=== PATIENT | male | born 1960 | race Caucasian/White ===

== ENCOUNTER → 2017-07-24 | Outpatient (CLI) | payer OTHER ==
[2017-07-24 17:42] LABS: BLOOD UREA NITROGEN 20 mg/dl (7-18); CALCIUM 9.3 mg/dl (8.5-10.1); CARBON DIOXIDE 27 mmol/L (21-32); CREATININE 1.08 mg/dl (0.60-1.40); GLUCOSE 102 mg/dl (70-99); POTASSIUM 3.7 mmol/L (3.5-5.1); SODIUM 134 mmol/L (136-145)
[2017-07-24 17:46] LABS: CHOLESTEROL 223 mg/dl (0-200); LDL CHOLESTEROL CALCULATED 130 mg/dl
== END | disposition home or self-care (01) ==
LOC: C.LABPVFM 16:16
PROVIDERS: ATTEND Family Medicine
DX: I10 Essential (primary) hypertension (principal); E78.2 Mixed hyperlipidemia

== ENCOUNTER 2019-08-19 16:42 | Inpatient (IN) ==
[2019-08-19] MEDS ORDERED: SODIUM CHLORIDE 0.9% 1000ML 1,000 ML IV ONE (16:55)
[2019-08-19] MEDS ORDERED: ONDANSETRON INJ 2 MG/ML 2 ML VIAL IV STA (16:56)
[2019-08-19] MEDS ORDERED: MoRPHine SULFATE 4 MG/ML 1 ML CARP\\VIAL IV STA ×2 (16:56→17:31)
[2019-08-19] MEDS ORDERED: ACETAMINOPHEN 500 MG TAB PO STA (16:59)
--- NOTE | 2019-08-19 16:59 | Emergency Department Note ---
History of Present Illness General Chief complaint: Abdominal Pain Stated complaint: ABDOMINAL PAIN Time Seen by Provider: 08/19/19 16:49 Source: patient Mode of arrival: ambulatory Limitations: no limitations History of Present Illness Maximum Pain Intensity: 10 This Patient comes in with severe lower abdominal pain which started yesterday is got progressively worse. He has had associated nausea vomiting and diarrhea. He also says that he has not urinated for about 4 hours. He appears very uncomfortable. He also has a fever. No fall or trauma. No numbness or weakness of his legs. He has had some back issues but these are not currently giving him any problems. He has had no chest pain shortness of breath or recent travel. No history of abdominal surgery. Home Medications Home Medications Medication Instructions Recorded Confirmed Type tadalafil 10 mg tablet 10 mg PO UD PRN #6 tab 02/01/19 08/19/19 Rx gabapentin 100 mg capsule 100 mg PO .COMPLEX #90 cap 08/05/19 08/19/19 Rx lisinopril 20 1 tab PO DAILY #30 tab 08/09/19 08/19/19 Rx mg-hydrochlorothiazide 12.5 mg tablet metoprolol succinate 12.5 mg PO HS 08/19/19 08/19/19 History Allergies Allergy/AdvReac Type Severity Reaction Status Date / Time No Known Allergies Allergy Verified 08/19/19 17:11 Past Med/Surg History Medical History Anxiety (Chronic) Benign essential hypertension (Chronic) Erectile dysfunction (Chronic) Mixed hyperlipidemia (Chronic) Radicular low back pain Sciatic leg pain (Acute) Tubular adenoma of colon Tubulovillous adenoma of colon (Inactive) Surgical History No history of previous surgery Family History Denies family history of Ovarian cancer Prostate cancer Myocardial infarction Breast cancer Colorectal cancer Social History Preferred Language: Frisian marital status: Current Living Situation: Spouse current occupational status: employed Feels Safe at Home: Yes Smoking Status: Never smoker Do You Dip or Chew Tobacco: No ; Hx Alcohol Use: No Hx Substance Use: No during the past year weight has: remained stable Seatbelt Use: always Review of Systems A total of 10 systems reviewed and were otherwise negative Physical Exam Vital Signs Vital Signs - 24 hr 08/19/19 16:44 08/19/19 17:00 08/19/19 17:30 Temperature 39.1 C H Temperature Source Oral Pulse Rate 120 H 102 H Pulse Rate from SpO2 Sensor 103 H Respiratory Rate 28 H 23 Blood Pressure 158/87 H 152/93 H Blood Pressure Mean 110 110 Pulse Oximetry 100 98 95 Oxygen Delivery Method Room Air Room Air Sepsis Recent Fever Within 48 Hours Yes Sepsis New/Unexplained Change in Mental Status No Sepsis Action Taken by Nursing No Action Required 08/19/19 17:40 08/19/19 18:00 08/19/19 18:01 Temperature Temperature Source Pulse Rate 104 H 110 H 107 H Pulse Rate from SpO2 Sensor 104 H 109 H 107 H Respiratory Rate 23 24 22 Blood Pressure 151/89 H Blood Pressure Mean 127 Pulse Oximetry 96 93 95 Oxygen Delivery Method Sepsis Recent Fever Within 48 Hours Sepsis New/Unexplained Change in Mental Status Sepsis Action Taken by Nursing 08/19/19 18:30 08/19/19 18:50 Temperature 37.4 C Temperature Source Oral Pulse Rate 105 H Pulse Rate from SpO2 Sensor 105 H Respiratory Rate 24 Blood Pressure 146/82 H Blood Pressure Mean 97 Pulse Oximetry 95 Oxygen Delivery Method Sepsis Recent Fever Within 48 Hours Sepsis New/Unexplained Change in Mental Status Sepsis Action Taken by Nursing General: Well developed well nourished middle-age male who appears uncomfortable secondary to pain but in no acute respiratory distress, breathing comfortably on room air. Normal speech HEENT: Normal cephalic atraumatic. Pupils are equal round and reactive to light. Sclera anicteric. extraocular movements are intact. Oropharynx is pink with moist mucous membranes. No swelling of the mouth lips or tongue. Neck: Supple with a midline trachea. No meningeal signs or stiffness, no JVD or bruits. No Stridor. Chest: Normal respiratory effort, speaking full sentences. No retractions. No audible wheezes or rhonchi. No increased work of breathing. Heart: Tachycardic Abdomen: Moderately tender to palpation in the lower abdomen. Nondistended without rebound guarding or rigidity. Extremities: No cyanosis clubbing or edema. No calf tenderness or assymetry Spine/Back. Non tender to palpation. No CVA tenderness Skin: Good turgor without rashes. Neurologic exam: Cranial nerves two through 12 are intact. Motor and sensation are intact and symmetrical throughout. Course Administered Medications Magnesium Sulfate/Dextrose (Magnesium Sulfate / D5w) 1 gm in 100 mls @ 100 mls/hr IV Q1H GISSEL Stop: 08/19/19 20:44 Last Admin: 08/19/19 18:59 Dose: 100 mls/hr Documented by: [id number] Discontinued Medications Hydromorphone HCl (Dilaudid) 1 mg IV NOW STA Stop: 08/19/19 18:00 Last Admin: 08/19/19 18:03 Dose: 1 mg Documented by: [id number] Hydromorphone HCl (Dilaudid) 1 mg IV NOW STA Stop: 08/19/19 18:23 Last Admin: 08/19/19 18:30 Dose: 1 mg Documented by: [id number] Sodium Chloride (Nss 1000ml) 1,000 mls @ 999 mls/hr IV .Q1H1M ONE Stop: 08/19/19 17:55 Last Infusion: 08/19/19 18:06 Dose: 0 mls/hr Documented by: [id number] Admin: 08/19/19 17:04 Dose: 999 mls/hr Documented by: [id number] Acetaminophen (Ofirmev) 1,000 mg in 100 mls @ 400 mls/hr IV NOW STA; Protocol Stop: 08/19/19 18:00 Last Infusion: 08/19/19 18:12 Dose: 0 mls/hr Documented by: [id number] Admin: 08/19/19 17:57 Dose: 400 mls/hr Documented by: [id number] Piperacillin Sod/Tazobactam Sod (Zosyn) 4.5 gm in 120 mls @ 240 mls/hr IV NOW ONE Stop: 08/19/19 18:38 Last Infusion: 08/19/19 18:51 Dose: 0 mls/hr Documented by: [id number] Admin: 08/19/19 18:21 Dose: 240 mls/hr Documented by: [id number] Morphine Sulfate (Morphine Sulfate) 4 mg IV NOW STA Stop: 08/19/19 16:57 Last Admin: 08/19/19 17:03 Dose: 4 mg Documented by: [id number] Morphine Sulfate (Morphine Sulfate) 4 mg IV NOW STA Stop: 08/19/19 17:32 Last Admin: 03/27/20 17:34 Dose: 4 mg Documented by: [id number] Ondansetron HCl (Zofran) 4 mg IV NOW STA Stop: 08/19/19 16:57 Last Admin: 08/19/19 17:03 Dose: 4 mg Documented by: [id number] Impression & Plan Acute appendicitis, Sepsis, Right sided abdominal pain, Hypomagnesemia Critical Care Time Critical Care Time: Yes Total Critical Care Time: 35 Due to the patient's concern for appendicitis/sepsis and need for frequent evaluation and multiple IV medications and reassessment, I have personally spent greater than 35 minutes of critical care time in the direct management of this patient. This includes bedside care, interpretation of diagnostic studies, and testing, discussion with consultants, patient, and family members, and other required patient management activities. This 35 minutes is in excess of all separately billable procedures. Discharge Plan Visit Data *Final* Discharge Date/Time: 08/19/19 18:42 Chief Complaint: Abdominal Pain Stated Complaint: ABDOMINAL PAIN ED Provider: Jarrett Moon Discharge Problem: Acute appendicitis, Sepsis, Right sided abdominal pain, Hypomagnesemia Patient Disposition: Admitted As Inpatient Discharge Instructions Interventions: ED Discharge Assessment Last Done: 08/19/19 18:42 Medical Decision Making Differential Diagnosis Differential diagnosis includes but is not limited to: Appendicitis, UTI/pyelonephritis, sepsis, colitis, abscess, diverticulitis, prostatitis, bladder outlet obstruction, bowel obstruction Medical Records Attestation: I reviewed the patient's medical records. Home Medications Current Medication List: was personally reviewed by me Laboratory Data Attestation: I reviewed the patient's lab results. Result diagrams: 08/19/19 17:00 08/19/19 17:00 Lab Results 08/19/19 08/19/19 08/19/19 Range/Units 17:00 17:00 17:00 WBC 14.80 H (4.8-10.8) K/uL RBC 5.07 (4.7-6.1) M/uL Hgb 15.6 (14.0-18.0) g/dL Hct 43.4 (42-52) % MCV 85.6 (80-100) fL MCH 30.8 (25-34) pg MCHC 35.9 (32-36) g/dL RDW Std Deviation 40.0 (36.4-46.3) fL RDW Coeff of Jordi 12.9 (11.5-14.5) % Plt Count 168 (130-400) K/uL MPV 11.6 H (7.4-10.4) fL Immature Gran % (Auto) 0.5 % Neut % (Auto) 90.2 % Lymph % (Auto) 3.9 % [place] % (Auto) 5.2 % Eos % (Auto) 0.1 % Baso % (Auto) 0.1 % Immature Gran # (Auto) 0.08 H (0.00-0.02) K/uL Neut # (Auto) 13.36 H (1.4-6.5) K/uL Lymph # (Auto) 0.57 L (1.2-3.4) K/uL [place] # (Auto) 0.77 H (0.11-0.59) K/uL Eos # (Auto) 0.01 (0-0.5) K/uL Baso # (Auto) 0.01 (0-0.2) K/uL PT 12.3 H (9.0-12.0) Seconds INR 1.2 H (0.9-1.1) APTT 36.5 H (21.0-31.0) Seconds PTT Ratio 1.3 Sodium 130 L (136-145) mmol/L Potassium 3.6 (3.5-5.1) mmol/L Chloride 99 (98-107) mmol/L Carbon Dioxide 22 (21-32) mmol/L Anion Gap 10.0 (3-11) BUN 14 (7-18) mg/dl Creatinine 1.06 (0.6-1.4) mg/dl Est Cr Clr Drug Dosing 80.6 ml/min Est GFR ( Amer) 89.2 Est GFR (Non-Af Amer) 77.0 BUN/Creatinine Ratio 12.7 (10-20) Glucose 140 H (70-99) mg/dl Lactate (0.4-2.0) mmol/L Calcium 9.6 (8.5-10.1) mg/dl Magnesium 1.7 L (1.8-2.4) mg/dl Total Bilirubin 1.3 H (0.2-1) mg/dl AST 16 (15-37) U/L ALT 64 (12-78) U/L Alkaline Phosphatase 60 (45-117) U/L Total Protein 7.9 (6.4-8.2) gm/dl Albumin 3.7 (3.4-5.0) gm/dl Globulin 4.2 H (2.5-4.0) gm/dl Albumin/Globulin Ratio 0.9 (0.9-2) // Range/Units 18:05 WBC (4.8-10.8) K/uL RBC (4.7-6.1) M/uL Hgb (14.0-18.0) g/dL Hct (42-52) % MCV (80-100) fL MCH (25-34) pg MCHC (32-36) g/dL RDW Std Deviation (36.4-46.3) fL RDW Coeff of Jordi (11.5-14.5) % Plt Count (130-400) K/uL MPV (7.4-10.4) fL Immature Gran % (Auto) % Neut % (Auto) % Lymph % (Auto) % [place] % (Auto) % Eos % (Auto) % Baso % (Auto) % Immature Gran # (Auto) (0.00-0.02) K/uL Neut # (Auto) (1.4-6.5) K/uL Lymph # (Auto) (1.2-3.4) K/uL [place] # (Auto) (0.11-0.59) K/uL Eos # (Auto) (0-0.5) K/uL Baso # (Auto) (0-0.2) K/uL PT (9.0-12.0) Seconds INR (0.9-1.1) APTT (21.0-31.0) Seconds PTT Ratio Sodium (136-145) mmol/L Potassium (3.5-5.1) mmol/L Chloride (98-107) mmol/L Carbon Dioxide (21-32) mmol/L Anion Gap (3-11) BUN (7-18) mg/dl Creatinine (0.6-1.4) mg/dl Est Cr Clr Drug Dosing ml/min Est GFR ( Amer) Est GFR (Non-Af Amer) BUN/Creatinine Ratio (10-20) Glucose (70-99) mg/dl Lactate 1.7 (0.4-2.0) mmol/L Calcium (8.5-10.1) mg/dl Magnesium (1.8-2.4) mg/dl Total Bilirubin (0.2-1) mg/dl AST (15-37) U/L ALT (12-78) U/L Alkaline Phosphatase (45-117) U/L Total Protein (6.4-8.2) gm/dl Albumin (3.4-5.0) gm/dl Globulin (2.5-4.0) gm/dl Albumin/Globulin Ratio (0.9-2) Imaging Data Radiologist's Impression: CT of the abdomen: Findings consistent with acute appendicitis likely. Please refer to radiology report. Chest x-ray: No acute findings. Please refer to report ECG Data Attestation: I personally reviewed and interpreted this ECG as follows: Indication: + abdominal pain Rate (beats per minute): 110 Rhythm: + sinus tachycardia and + other (Poor baseline) ECG Intervals/blocks: + Prolonged QT ECG [place]: + Normal ECG ST segments: + Normal ST segments Comparison ECG Date: no prior available Blood Pressure Blood Pressure Findings: Elevated blood pressure Blood Pressure Disposition: elevated BP felt to be situational MDM Narrative This patient comes in as described above. The nurse asked that I come see him as he appeared very uncomfortable. On my exam, he does have a fever and significant lower abdominal pain. Concern is for a surgical process such as possible appendicitis. We did a quick bladder scan and there is only 100 cc in the bladder therefore he does not have bladder outlet obstruction. Given his fever, we did order a full sepsis work-up. He was kept n.p.o. was hydrated with 1 L normal IV saline bolus. He was given Tylenol 1 g IV as he was kept n.p.o. He has not had Tylenol for at least 4 hours. For pain, he was given morphine 4 mg IV and Zofran 4 mg IV for nausea management. Multiple blood testing was obtained including blood cultures. Urinalysis and culture was ordered as well. I did order a noncontrast CAT scan. He was reassessed frequently. CAT scan shows findings consistent with appendicitis with a lot of inflammatory changes but no definite abscess seen. The patient did have a significant amount of pain. He did receive additional IV morphine as well as 2 doses of Dilaudid 1 mg IV. It was also noted that his potassium is low at 1.7 and he does have a pr olonged QT interval on EKG. In light of this he was ordered for 2 g of magnesium IV. He had no arrhythmias in the ED. His white count was elevated. His temperature did come down to 37 4 he remained normotensive. His pulse rate also improved with fluids and pain management. I did consult Dr. Hassan and she is going to take him to the operating room for an appendectomy. The patient was given Zosyn 4.5 g IV as well. Discharge Problem: Acute appendicitis Qualifiers: Acute appendicitis type: with localized peritonitis Appendicitis gangrene presence: unspecified whether gangrene present Appendicitis perforation presence: unspecified whether perforation present Appendicitis abscess presence: unspecified whether abscess present Qualified Code(s): K35.30 - Acute appendicitis with localized peritonitis, without perforation or gangrene Sepsis Qualifiers: Sepsis type: sepsis due to unspecified organism Sepsis acute organ dysfunction status: unspecified Qualified Code(s): A41.9 - Sepsis, unspecified organism
--- NOTE | 2019-08-19 17:38 | CT Scan Report ---
CT abd pelvis wo con CT DOSE: 654.63 mGy.cm HISTORY: Pain fever, lower abd pain- eval for appy, diver, abces TECHNIQUE: Multiaxial CT images of the abdomen and pelvis were performed without contrast. A dose lo wering technique was utilized adhering to the principles of ALARA. COMPARISON STUDY: None. FINDINGS: Lung bases are clear. Liver spleen and pancreas appear unremarkable. The kidneys are negative for nephrocalcinosis or hydronephrosis. There is a nonspecific inflammatory process involving the right lower quadrant with several nonspecif ic calcifications possibly within the appendix. There is moderate wall thickening of the distal aspec t of the terminal ileum with secondary reactive inflammatory change of the superior sigmoid colon. No evidence for drainable abscess or collection. Bladder is midline. No free fluid within the pelvic cul-de-sac. IMPRESSION: 1. Findings highly suspect for acute appendicitis with considerable inflammatory change throughout th e low abdominal and pelvic regions. 2. Well-defined drainable abscess or collection is not appreciated. 3. Moderate reactive wall edema of components of the terminal ileum as well as superior sigmoid colon ACT 112: Negative or not required by law. The above report was generated using voice recognition software. It may contain grammatical, syntax or spelling errors. Electronically signed by: Melecio Brewer M.D. 08/19/2019 5:37 PM
[2019-08-19 17:46] LABS: Basophils # (auto) 0.01 K/uL (0-0.2); Basophils % (auto) 0.1 %; Eosinophils # (auto) 0.01 K/uL (0-0.5); Eosinophils % (auto) 0.1 %; Hematocrit (blood only) 43.4 % (42-52); Hemoglobin 15.6 g/dL (14.0-18.0); Immature Granulocytes # (auto) 0.08 K/uL (0.00-0.02); Immature Granulocytes % (auto) 0.5 %; Lymphocytes # (auto) 0.57 K/uL (1.2-3.4); Lymphocytes % (auto) 3.9 %; Mean Corpuscular Hemoglobin 30.8 pg (25-34); Mean Corpuscular Hgb Conc 35.9 g/dL (32-36); Mean Corpuscular Volume 85.6 fL (80-100); Mean Platelet Volume 11.6 fL (7.4-10.4); Monocytes # (auto) 0.77 K/uL (0.11-0.59); Monocytes % (auto) 5.2 %; Neutrophils # (auto) 13.36 K/uL (1.4-6.5); Neutrophils % (auto) 90.2 %; Platelet Count 168 K/uL (130-400); RDW Coefficient of Variation 12.9 % (11.5-14.5); Red Blood Count 5.07 M/uL (4.7-6.1)
[2019-08-19] MEDS ORDERED: ACETAMINOPHEN 1,000 MG/100 ML VIAL IV STA (17:46)
[2019-08-19] MEDS ORDERED: HYDROmorphone INJ 1 MG/ML SYRINGE IV STA ×2 (17:59→18:22)
[2019-08-19 18:00] LABS: INR 1.2 (0.9-1.1); Partial Thromboplastin Ratio 1.3; Partial Thromboplastin Time 36.5 Seconds (21.0-31.0); Prothrombin Time 12.3 Seconds (9.0-12.0)
[2019-08-19 18:03] LABS: Albumin Level 3.7 gm/dl (3.4-5.0); BUN Creatinine Ratio 12.7 (10-20); Calcium 9.6 mg/dl (8.5-10.1); Creatinine Clr Calc Pharmacy 80.6 ml/min; Est GFR (African American) 89.2; Magnesium 1.7 mg/dl (1.8-2.4); Potassium 3.6 mmol/L (3.5-5.1)
[2019-08-19 18:06] LABS: Albumin Globulin Ratio 0.9 (0.9-2); Bilirubin,Total 1.3 mg/dl (0.2-1); Globulin 4.2 gm/dl (2.5-4.0); Total Protein 7.9 gm/dl (6.4-8.2)
[2019-08-19] MEDS ORDERED: PIPERACILL/TAZOBAC CONSULT ACTIVE PRN (18:09)
[2019-08-19] MEDS ORDERED: PIPERACILLIN/TAZOBACTAM 4.5 GM/120 ML BAG IV ONE (18:09)
--- NOTE | 2019-08-19 18:10 | XRay Report ---
XR chest 1V portable CLINICAL HISTORY: SEPSIS dyspnea COMPARISON STUDY: No previous studies for comparison. FINDINGS: The bones soft tissues and hemidiaphragms are normal. The cardiomediastinal silhouette is n ormal. The lungs are clear. The pulmonary vasculature is normal. IMPRESSION: Negative chest. ACT 112: Negative or not required by law. The above report was generated using voice recognition software. It may contain grammatical, syntax or spelling errors. Electronically signed by: Melecio Brewer M.D. 08/19/2019 6:08 PM
--- NOTE | 2019-08-19 18:36 | History & Physical Report ---
Date of Service August 19, 2019 Assessment & Plan (1) Acute appendicitis: 59 yr old man with acute appendicitis. CT scan shows inflammation/ edema also involving terminal ileum and superior sigmoid colon. Inflammatory bowel disease remains a differential also. Discussed laparoscopic appendectomy, possible open, possible risk of needing larger procedure with bowel resection and more prolonged hospital stay. Risks of bleeding, infection, conversion to open, postop ileus, abscess all reviewed. Consent signed. For OR tonight History of Present Illness Chief Complaint: abdominal pain Primary Care Provider: WAYLON Peters 59 yr old man who presented to ER with complaints of severe abdominal pain that started one day ago. Was able to sleep last night but this morning, the abdomen was worse and more localized in lower quadrants. No radiation. 10/10 in intensity, not relieved by pain medications. Associated with fever. No nausea or vomiting. No prior similar symptoms. No recent travel history. Last month, was being treated for left hip/ leg pain by pcp. Allergies Allergy/AdvReac Type Severity Reaction Status Date / Time No Known Allergies Allergy Verified 08/19/19 17:11 Home Medications Home Medications Medication Instructions Recorded Confirmed Type tadalafil 10 mg tablet 10 mg PO UD PRN #6 tab 02/01/19 08/19/19 Rx gabapentin 100 mg capsule 100 mg PO .COMPLEX #90 cap 08/05/19 08/19/19 Rx lisinopril 20 1 tab PO DAILY #30 tab 08/09/19 08/19/19 Rx mg-hydrochlorothiazide 12.5 mg tablet metoprolol succinate 12.5 mg PO HS 08/19/19 08/19/19 History Past Med/Surg History Medical History Anxiety (Chronic) Benign essential hypertension (Chronic) Erectile dysfunction (Chronic) Mixed hyperlipidemia (Chronic) Radicular low back pain Sciatic leg pain (Acute) Tubular adenoma of colon Tubulovillous adenoma of colon (Inactive) Surgical History No history of previous surgery Family History Denies family history of Ovarian cancer Prostate cancer Myocardial infarction Breast cancer Colorectal cancer Social History Preferred Language: Tamaz[place] marital status: Current Living Situation: Spouse current occupational status: employed Feels Safe at Home: Yes Smoking Status: Never smoker Do You Dip or Chew Tobacco: No ; Hx Alcohol Use: No Hx Substance Use: No during the past year weight has: remained stable Seatbelt Use: always Physical Exam Constitutional: WD/WN, vitals as above Eyes: PERRL, conjunctivae normal, anicteric sclerae Neck: trachea midline, no thyromegaly Respiratory: normal respiratory effort, lungs clear to auscultation Cardiovascular: RRR, no murmur, no edema Gastrointestinal (Abdomen): Inspection/Auscultation: + abdomen distended; + abnormal bowel sounds Percussion/Palpation: + abdomen tender (diffusely) and + guarding (lower abdomen); no hepatomegaly small reducible umbilical hernia Musculoskeletal: no cyanosis or clubbing, extremities motor strength 5/5 Neurologic: moves all extremities; no focal motor deficits Psychiatric: Orientation: alert and oriented x 3 Results & Data Results & Data ([facility]) Vital Signs (Past 12 Hours) Vital Signs Temp Pulse Resp BP Pulse Ox 08/19/19 18:01 107 H 22 95 08/19/19 18:00 110 H 24 151/89 H 93 08/19/19 17:40 104 H 23 96 08/19/19 17:30 102 H 23 152/93 H 95 08/19/19 17:00 98 08/19/19 16:44 39.1 C H 120 H 28 H 158/87 H 100 Laboratory Results 08/19/19 08/19/19 08/19/19 Range/Units 18:05 17:00 17:00 WBC (4.8-10.8) K/uL RBC (4.7-6.1) M/uL Hgb (14.0-18.0) g/dL Hct (42-52) % MCV (80-100) fL MCH (25-34) pg MCHC (32-36) g/dL RDW Std Deviation (36.4-46.3) fL RDW Coeff of Jordi (11.5-14.5) % Plt Count (130-400) K/uL MPV (7.4-10.4) fL Immature Gran % (Auto) % Neut % (Auto) % Lymph % (Auto) % [place] % (Auto) % Eos % (Auto) % Baso % (Auto) % Immature Gran # (Auto) (0.00-0.02) K/uL Neut # (Auto) (1.4-6.5) K/uL Lymph # (Auto) (1.2-3.4) K/uL [place] # (Auto) (0.11-0.59) K/uL Eos # (Auto) (0-0.5) K/uL Baso # (Auto) (0-0.2) K/uL PT 12.3 H (9.0-12.0) Seconds INR 1.2 H (0.9-1.1) APTT 36.5 H (21.0-31.0) Seconds PTT Ratio 1.3 Sodium 130 L (136-145) mmol/L Potassium 3.6 (3.5-5.1) mmol/L Chloride 99 (98-107) mmol/L Carbon Dioxide 22 (21-32) mmol/L Anion Gap 10.0 (3-11) BUN 14 (7-18) mg/dl Creatinine 1.06 (0.6-1.4) mg/dl Est Cr Clr Drug Dosing 80.6 ml/min Est GFR ( Amer) 89.2 Est GFR (Non-Af Amer) 77.0 BUN/Creatinine Ratio 12.7 (10-20) Glucose 140 H (70-99) mg/dl Lactate 1.7 (0.4-2.0) mmol/L Calcium 9.6 (8.5-10.1) mg/dl Magnesium 1.7 L (1.8-2.4) mg/dl Total Bilirubin 1.3 H (0.2-1) mg/dl AST 16 (15-37) U/L ALT 64 (12-78) U/L Alkaline Phosphatase 60 (45-117) U/L Total Protein 7.9 (6.4-8.2) gm/dl Albumin 3.7 (3.4-5.0) gm/dl Globulin 4.2 H (2.5-4.0) gm/dl Albumin/Globulin Ratio 0.9 (0.9-2) 08/19/19 Range/Units 17:00 WBC 14.80 H (4.8-10.8) K/uL RBC 5.07 (4.7-6.1) M/uL Hgb 15.6 (14.0-18.0) g/dL Hct 43.4 (42-52) % MCV 85.6 (80-100) fL MCH 30.8 (25-34) pg MCHC 35.9 (32-36) g/dL RDW Std Deviation 40.0 (36.4-46.3) fL RDW Coeff of Jordi 12.9 (11.5-14.5) % Plt Count 168 (130-400) K/uL MPV 11.6 H (7.4-10.4) fL Immature Gran % (Auto) 0.5 % Neut % (Auto) 90.2 % Lymph % (Auto) 3.9 % [place] % (Auto) 5.2 % Eos % (Auto) 0.1 % Baso % (Auto) 0.1 % Immature Gran # (Auto) 0.08 H (0.00-0.02) K/uL Neut # (Auto) 13.36 H (1.4-6.5) K/uL Lymph # (Auto) 0.57 L (1.2-3.4) K/uL [place] # (Auto) 0.77 H (0.11-0.59) K/uL Eos # (Auto) 0.01 (0-0.5) K/uL Baso # (Auto) 0.01 (0-0.2) K/uL PT (9.0-12.0) Seconds INR (0.9-1.1) APTT (21.0-31.0) Seconds PTT Ratio Sodium (136-145) mmol/L Potassium (3.5-5.1) mmol/L Chloride (98-107) mmol/L Carbon Dioxide (21-32) mmol/L Anion Gap (3-11) BUN (7-18) mg/dl Creatinine (0.6-1.4) mg/dl Est Cr Clr Drug Dosing ml/min Est GFR ( Amer) Est GFR (Non-Af Amer) BUN/Creatinine Ratio (10-20) Glucose (70-99) mg/dl Lactate (0.4-2.0) mmol/L Calcium (8.5-10.1) mg/dl Magnesium (1.8-2.4) mg/dl Total Bilirubin (0.2-1) mg/dl AST (15-37) U/L ALT (12-78) U/L Alkaline Phosphatase (45-117) U/L Total Protein (6.4-8.2) gm/dl Albumin (3.4-5.0) gm/dl Globulin (2.5-4.0) gm/dl Albumin/Globulin Ratio (0.9-2) Diagnostic Findings FINDINGS: Lung bases are clear. Liver spleen and pancreas appear unremarkable. The kidneys are negative for nephrocalcinosis or hydronephrosis. There is a nonspecific inflammatory process involving the right lower quadrant with several nonspecific calcifications possibly within the appendix. There is moderate wall thickening of the distal aspect of the terminal ileum with secondary reactive inflammatory change of the superior sigmoid colon. No evidence for drainable abscess or collection. Bladder is midline. No free fluid within the pelvic cul-de-sac. IMPRESSION: 1. Findings highly suspect for acute appendicitis with considerable inflammatory change throughout the low abdominal and pelvic regions. 2. Well-defined drainable abscess or collection is not appreciated. 3. Moderate reactive wall edema of components of the terminal ileum as well as superior sigmoid colon (1) Acute appendicitis Acute appendicitis type: with localized peritonitis Appendicitis abscess presence: without abscess Appendicitis gangrene presence: unspecified whether gangrene present Appendicitis perforation presence: without perforation Qualified Code(s): K35.30 - Acute appendicitis with localized peritonitis, without perforation or gangrene
[2019-08-19] MEDS: MAGNESIUM SULFATE / D5W 1 GM/100 ML BAG IV SCH ×2 (18:59→21:47)
[2019-08-19] MEDS ORDERED: MIDAZOLAM HCL 1 MG/ML 2ML VIAL ONE (19:04)
[2019-08-19] MEDS ORDERED: fentaNYL citrate 100 MCG/2 ML VIAL ONE ×2 (19:04→20:10)
[2019-08-19] MEDS ORDERED: ePHEDrine sulfate 50 MG/ML AMP IV PRN (19:08)
[2019-08-19] MEDS ORDERED: HYDROmorphone INJ 1 MG/ML SYRINGE IV PRN (19:08)
[2019-08-19] MEDS ORDERED: ATROPINE SULFATE 0.1 MG/ML 10ML SYR IV PRN (19:08)
[2019-08-19] MEDS ORDERED: fentaNYL citrate 100 MCG/2 ML VIAL IV PRN (19:08)
[2019-08-19] MEDS ORDERED: ONDANSETRON INJ 2 MG/ML 2 ML VIAL IV PRN (19:08)
--- NOTE | 2019-08-19 19:10 | Anesthesiology Consultation ---
Date of Service August 19, 2019 Assessment & Plan (1) Encounter for pre-operative examination: Chart Review Chart Review: Acceptable Risk for Surgery and Patient NOT seen in Pre Admission Testing Consults Requested none History Surgery Operation Date: 08/19/19 19:15 Proposed Procedures p Laparoscopic Appendectomy - Melissa Hassan MD Height/Weight Height: 5 ft 7 in Weight: 88.4 kg Allergies Allergy/AdvReac Type Severity Reaction Status Date / Time No Known Allergies Allergy Verified 08/19/19 17:11 Medications Home Medications Medication Instructions Recorded Confirmed Last Taken tadalafil 10 mg tablet 10 mg PO UD PRN #6 tab 02/01/19 08/19/19 Unknown gabapentin 100 mg capsule 100 mg PO .COMPLEX #90 cap 08/05/19 08/19/19 08/18/19 2 TAB ON THIS DAY lisinopril 20 1 tab PO DAILY #30 tab 08/09/19 08/19/19 08/19/19 mg-hydrochlorothiazide 12.5 mg tablet metoprolol succinate 12.5 mg PO HS 08/19/19 08/19/19 08/19/19 Active Medications Generic Name Dose Route Start Last Admin Trade Name Freq PRN Reason Stop Dose Admin Magnesium Sulfate/Dextrose 1 gm in 100 mls @ 100 mls/hr 08/19/19 18:45 08/19/19 18:59 Magnesium Sulfate / D5w IV 08/19/19 20:44 100 mls/hr Q1H GISSEL Administration NPO Date Last Intake of Fluids: 08/19/19 Time Last Intake of Fluids: 16:00 Last Intake of Fluids Comment: sips Date Last Intake of Solids: 08/17/19 Time Last Intake of Solids: 17:00 Past Medical History Medical History Anxiety (Chronic) Benign essential hypertension (Chronic) Erectile dysfunction (Chronic) Mixed hyperlipidemia (Chronic) Radicular low back pain Sciatic leg pain (Acute) Tubular adenoma of colon Tubulovillous adenoma of colon (Inactive) Exercise / Class Metabolic Activity II 4-5 Yardwork/Stairs/Walk up hill Past Family History Family History Denies family history of Ovarian cancer Prostate cancer Myocardial infarction Breast cancer Colorectal cancer Past Surgical History Surgical History No history of previous surgery Past Anesthesia History No Hx of Anesthesia Complications and No Family Hx of Anesthesia Complications History of PONV No Hx of PONV and No Hx of Motion Sickness Social History Smoking Status: Never smoker Do You Dip or Chew Tobacco: No Hx Alcohol Use: No Hx Substance Use: No Physical Exam Vital Signs Last Vital Signs Temp 37.4 C 08/19/19 18:50 Pulse 105 H 08/19/19 18:30 Resp 24 08/19/19 18:30 BP 146/82 H 08/19/19 18:30 Pulse Ox 95 08/19/19 18:30 Testing Laboratory Results 08/19/19 17:00 08/19/19 17:00 PT 12.3 Seconds (9.0-12.0) H 08/19/19 17:00 INR 1.2 (0.9-1.1) H 08/19/19 17:00 APTT 36.5 Seconds (21.0-31.0) H 08/19/19 17:00
[2019-08-19] MEDS ORDERED: BUPIVACAINE 0.5 % 5 MG/1 ML MPF 30ML VIAL ONE ×2 (19:15→20:10)
[2019-08-19] MEDS ORDERED: NEOSTIGMINE METHYLSULFATE 5 MG/5 ML SYR ONE (20:12)
[2019-08-19] MEDS ORDERED: SUCCINYLCHOLINE CHLORIDE 20 MG/ML 10 ML VIAL ONE (20:12)
[2019-08-19] MEDS ORDERED: PROPOFOL IV EMULSION 10 MG/ML 20 ML VIAL IV ONE (20:12)
[2019-08-19] MEDS ORDERED: ONDANSETRON INJ 2 MG/ML 2 ML VIAL ONE (20:12)
[2019-08-19] MEDS ORDERED: GLYCOPYRROLATE 0.2 MG/ML VIAL ONE (20:12)
[2019-08-19] MEDS ORDERED: ROCURONIUM BROMIDE 10 MG/ML 5 ML VIAL ONE (20:12)
[2019-08-19] MEDS ORDERED: DEXAMETHASONE SOD INJ 4 MG/ML VIAL ONE (20:12)
--- NOTE | 2019-08-19 21:32 | Operative Report ---
Post Operative Report Pre & Post Diagnosis Operation Date: 08/19/19 19:15 Pre-Op Diagnosis: Abdominal Pain Post-Op Diagnosis: Perforated Appendicitis I identified the patient and participated in the time-out.: Yes Procedure Operation Date: 08/19/19 19:15 Actual Procedures p Laparoscopic Appendectomy Converted to Open Appendectomy(Not Applicable) - Elton Hassan MD Surgeon Melissa Hassan MD Top Stop Attacher none Estimated Blood Loss 10 Findings See Below (severe perforated appendicitis with pus/ bowel contents leaked throughout abdomen) Specimens appendix Description of Procedure The patient was on Zosyn preoperatively. After the induction of general endotracheal anesthesia, he had placement of a Evans catheter and sequential compression devices. His abdomen was clipped and then sterilely prepped and draped. He was initially positioned in Trendelenburg. A supraumbilical incision was made and a Veress into the peritoneal cavity. This was tested with a saline drop test. Initial pressure was 4 mmHg with placement of the Veress needle. This was taken up to 15 mmHg. A 5 mm trocar was placed under direct vision. Initial inspection of the abdomen revealed evidence of gross pus in the pelvis. There were fibrinous, exudative changes and pus extending throughout the entire abdomen including the upper quadrants. The appendix could not be easily visualized. 2 additional trochars were placed under direct vision. A 12 mm in the left lower quadrant and a 5 mm in the midline pubic area. Attempt was made to identify the appendix. The tissue was very edematous friable and scarred in in the right lower quadrant. There was free pus and what appeared to be bowel contents in this area. While the tip of the appendix was able to be identified, it was unable to be dissected free due to the severity of the changes. Thus decision was made to open. The trocars were removed. A midline incision was made and carried down through the fascia into the abdominal cavity. Adhesions of omentum to the anterior abdominal wall had been taken down laparoscopically. These were inspected and areas of bleeding were ligated with Vicryl sutures. Using blunt dissection the appendix could be cleared of posterior attachments as well as inflammatory adhesions to terminal ileum and sigmoid colon. The appendix was noted to be completely gangrenous and perforated. The mesentery was taken slowly and ultimately with clips and a firing of the stapler. The appendix was followed to its base on the cecum. This was divided off the cecum with a firing of the purple load stapler. The appendix was then removed. The abdomen was irrigated with multiple liters of saline. The bowel was run and no other areas of concern were noted. The pelvis was irrigated. The sponge and needle counts was performed and was correct. The abdomen was then closed with a running looped 0 PDS suture x2 along the fascia. The skin and subcutaneous tissues were irrigated. Local anesthesia was injected into all the incisions. The skin was loosely closed with denae. The left lower quadrant incision for the 12 mm port site was closed with an 0 Vicryl stitch on fascia. The skin was closed with denae. Sterile dressings were applied. He was awakened and taken to recovery in stable condition I attest to the content of the Intraoperative Record and any orders documented therein. Any exceptions are noted below.
--- NOTE | 2019-08-19 21:51 | Anesthesiology Progress Note ---
Date of Service August 19, 2019 Anesthesia Post Procedure Vital Signs Vital Signs: Temp Pulse Resp BP Pulse Ox 08/19/19 18:50 37.4 C 08/19/19 18:30 105 H 24 146/82 H 95 08/19/19 18:01 107 H 22 95 08/19/19 18:00 110 H 24 151/89 H 93 08/19/19 17:40 104 H 23 96 08/19/19 17:30 102 H 23 152/93 H 95 08/19/19 17:00 98 08/19/19 16:44 39.1 C H 120 H 28 H 158/87 H 100 Pain Intensity Left Abdomen: Pain Intensity: 5 Transfer of Care Handoff Completed per policy Notes Mental Status: alert / awake / arousable and participated in evaluation Patient Amnestic to Procedure: Yes Nausea / Vomiting: adequately controlled Pain: adequately controlled Airway Patency, RR, SpO2: stable & adequate BP & HR: stable & adequate Hydration State: stable & adequate Anesthetic Complications: no major complications apparent and Pt Satisfied with anesthetic care
[2019-08-19] MEDS ORDERED: MoRPHine SULFATE 4 MG/ML 1 ML CARP\\VIAL IV PRN (22:48)
[2019-08-19] MEDS ORDERED: GABAPENTIN 100 MG CAP PO SCH (22:48)
[2019-08-19] MEDS ORDERED: OXYCODONE/ACETAMINOPHEN 5mg/325mg TAB PO PRN (22:48)
[2019-08-19] MEDS ORDERED: NON-FORMULARY MEDICATION (Tadalafil 10 MG) PO PRN (22:48)
[2019-08-19] MEDS ORDERED: MoRPHine SULFATE 2 MG/ML CARP IV PRN ×2 (22:48)
[2019-08-20] MEDS: LACTATED RINGER'S 1,000 ML IV SCH ×3 (03:18→22:37)
[2019-08-20] MEDS ORDERED: PIPERACILL/TAZOBAC CONSULT ACTIVE PRN (04:02)
[2019-08-20] MEDS: PIPERACILLIN/TAZOBACTAM 3.375 GM in DEXTROSE 5% 100 ML IV SCH ×3 (05:14→20:27)
[2019-08-20] MEDS: ACETAMINOPHEN 325 MG TAB PO PRN (07:29)
[2019-08-20] MEDS: LISINOPRIL/HCTZ 20/12.5MG 1 TAB TAB PO SCH (07:30)
[2019-08-20] MEDS: OXYCODONE/ACETAMINOPHEN 5mg/325mg TAB PO PRN ×3 (11:07→23:50)
--- NOTE | 2019-08-20 11:16 | Surgery Progress Note ---
Date of Service August 20, 2019 Assessment & Plan (1) Acute appendicitis: s/p open appendectomy for perforated appendicitis with generalized peritonitis. Will slowly advance diet (full liquids today). Encourage ambulation. Continue IV zosyn pending cultures of intra-abdominal fluid. Recheck labs in am. Present on Admission?: Yes Subjective POD#1 from open appendectomy through midline incision for severe perforated appendicitis with generalized peritonitis (pus throughout abdomen). Sitting in chair - feels a bit lightheaded when he is upright. Pain is manageable with pain medications. Has tolerated some liquids but has no appetite, possibly nausea (he is not sure). No flatus yet. Review of Systems Review of Systems: All systems reviewed & are unremarkable except as noted in HPI & below Physical Exam Constitutional: WD/WN, vitals as above Eyes: PERRL, conjunctivae normal, anicteric sclerae Neck: trachea midline, no thyromegaly Respiratory: normal respiratory effort, lungs clear to auscultation Cardiovascular: RRR, no murmur, no edema Gastrointestinal (Abdomen): Inspection/Auscultation: abdomen normal to inspection and + abdomen distended; + abnormal bowel sounds (hypoactive but present) Percussion/Palpation: + abdomen tender (mild) dressing clean and dry Musculoskeletal: no cyanosis or clubbing, extremities motor strength 5/5 Neurologic: moves all extremities; no focal motor deficits Psychiatric: Orientation: alert and oriented x 3 Results & Data Vital Signs (Past 12 Hours) Vital Signs Temp Pulse Resp BP Pulse Ox 08/20/19 07:10 36.9 C 94 H 18 109/73 95 08/20/19 06:00 36.6 C 94 H 16 113/75 95 08/20/19 01:45 36.5 C 95 H 16 107/73 96 08/20/19 00:45 36.5 C 92 H 16 111/76 93 08/19/19 23:45 36.4 C L 92 H 16 121/83 93 08/19/19 23:15 36.5 C 91 H 16 117/79 94 (1) Acute appendicitis Acute appendicitis type: with localized peritonitis Appendicitis abscess presence: unspecified whether abscess present Appendicitis gangrene presence: unspecified whether gangrene present Appendicitis perforation presence: unspecified whether perforation present Qualified Code(s): K35.30 - Acute appendicitis with localized peritonitis, without perforation or gangrene
[2019-08-20] MEDS: KETOROLAC TROMETHAMINE 15 MG/ML VIAL IV PRN ×2 (11:20→18:21)
--- NOTE | 2019-08-20 12:48 | Electrocardiogram Report ---
Test Reason : Blood Pressure : / mmHG Vent. Rate : 110 BPM Atrial Rate : 110 BPM P-R Int : 114 ms QRS Dur : 080 ms QT Int : 412 ms P-R-T Axes : 065 034 003 degrees QTc Int : 557 ms Poor data quality, interpretation may be adversely affected Sinus tachycardia Prolonged QT Abnormal ECG No previous ECGs available Confirmed by Pj Toribio ([id number]) on 08/20/2019 12:48:48 PM Referred By: REFERRED SELF Confirmed By:Pj Toribio
[2019-08-20] MEDS ORDERED: ONDANSETRON INJ 2 MG/ML 2 ML VIAL IV PRN (18:38)
[2019-08-20] MEDS ORDERED: ONDANSETRON INJ 2 MG/ML 2 ML VIAL ONE (18:40)
[2019-08-20] MEDS: METOPROLOL SUCC 25MG EXT REL TAB PO SCH (20:23)
[2019-08-21] MEDS: PIPERACILLIN/TAZOBACTAM 3.375 GM in DEXTROSE 5% 100 ML IV SCH ×3 (05:30→20:21)
[2019-08-21 06:22] LABS: Basophils # (auto) 0.01 K/uL (0-0.2); Basophils % (auto) 0.2 %; Eosinophils # (auto) 0.05 K/uL (0-0.5); Eosinophils % (auto) 0.8 %; Hematocrit (blood only) 34.7 % (42-52); Hemoglobin 11.8 g/dL (14.0-18.0); Immature Granulocytes # (auto) 0.02 K/uL (0.00-0.02); Immature Granulocytes % (auto) 0.3 %; Lymphocytes # (auto) 0.57 K/uL (1.2-3.4); Lymphocytes % (auto) 8.7 %; Mean Corpuscular Hemoglobin 29.9 pg (25-34); Mean Corpuscular Volume 87.8 fL (80-100); Monocytes # (auto) 0.24 K/uL (0.11-0.59); Monocytes % (auto) 3.7 %; Neutrophils # (auto) 5.67 K/uL (1.4-6.5); Neutrophils % (auto) 86.3 %; Platelet Count 140 K/uL (130-400); RDW Coefficient of Variation 13.1 % (11.5-14.5); RDW Standard Deviation 42.5 fL (36.4-46.3); Red Blood Count 3.95 M/uL (4.7-6.1); White Blood Count 6.56 K/uL (4.8-10.8)
[2019-08-21 06:46] LABS: Est GFR (African American) 113.5; Potassium 3.7 mmol/L (3.5-5.1)
[2019-08-21] MEDS: LACTATED RINGER'S 1,000 ML IV SCH ×2 (08:12→18:20)
[2019-08-21] MEDS: LISINOPRIL/HCTZ 20/12.5MG 1 TAB TAB PO SCH (08:13)
--- NOTE | 2019-08-21 10:56 | Surgery Progress Note ---
Date of Service August 21, 2019 Assessment & Plan (1) Acute appendicitis: s/p open appendectomy for perforated appendicitis with generalized peritonitis. Continue full liquids given no bowel function yet. Encourage ambulation. Continue IV zosyn pending cultures of intra-abdominal fluid. Leuko cytosis has resolved - will need full 7-10 day course of antibiotics (OK to switch to oral on discharge). Subjective POD#2 from open appendectomy through midline incision for severe perforated appendicitis with generalized peritonitis (pus throughout abdomen). Has been able to walk in room. [place] like he might pass gas but has not yet. Still distend ed and feels gurgling in abdomen. Minimal appetite - nauseated yesterday but none today. Pain is worse with movement, responds to pain medications. Review of Systems Review of Systems: All systems reviewed & are unremarkable except as noted in HPI & below Physical Exam Constitutional: WD/WN, vitals as above Eyes: PERRL, conjunctivae normal, anicteric sclerae Neck: trachea midline, no thyromegaly Respiratory: normal respiratory effort, lungs clear to auscultation Cardiovascular: RRR, no murmur, no edema Gastrointestinal (Abdomen): Inspection/Auscultation: abdomen normal to inspection and + abdomen distended; + abnormal bowel sounds (hypoactive but present) Percussion/Palpation: + abdomen tender (mild) incision clean and intact Musculoskeletal: no cyanosis or clubbing, extremities motor strength 5/5 Neurologic: moves all extremities; no focal motor deficits Psychiatric: Orientation: alert and oriented x 3 Results & Data Vital Signs (Past 12 Hours) Vital Signs Temp Pulse Resp BP Pulse Ox 08/21/19 07:10 36.8 C 80 18 108/69 95 08/21/19 05:43 36.8 C 86 16 112/73 95 08/20/19 22:54 36.8 C 82 16 102/65 95 Laboratory Results 08/21/19 08/21/19 Range/Units 05:49 05:49 WBC 6.56 (4.8-10.8) K/uL RBC 3.95 L (4.7-6.1) M/uL Hgb 11.8 L D (14.0-18.0) g/dL Hct 34.7 L (42-52) % MCV 87.8 (80-100) fL MCH 29.9 (25-34) pg MCHC 34.0 (32-36) g/dL RDW Std Deviation 42.5 (36.4-46.3) fL RDW Coeff of Jordi 13.1 (11.5-14.5) % Plt Count 140 (130-400) K/uL MPV 11.0 H (7.4-10.4) fL Immature Gran % (Auto) 0.3 % Neut % (Auto) 86.3 % Lymph % (Auto) 8.7 % [place] % (Auto) 3.7 % Eos % (Auto) 0.8 % Baso % (Auto) 0.2 % Immature Gran # (Auto) 0.02 (0.00-0.02) K/uL Neut # (Auto) 5.67 (1.4-6.5) K/uL Lymph # (Auto) 0.57 L (1.2-3.4) K/uL [place] # (Auto) 0.24 (0.11-0.59) K/uL Eos # (Auto) 0.05 (0-0.5) K/uL Baso # (Auto) 0.01 (0-0.2) K/uL Sodium 134 L (136-145) mmol/L Potassium 3.7 (3.5-5.1) mmol/L Chloride 101 (98-107) mmol/L Carbon Dioxide 28 (21-32) mmol/L Anion Gap 5.0 (3-11) BUN 12 (7-18) mg/dl Creatinine 0.81 (0.6-1.4) mg/dl Est Cr Clr Drug Dosing 103.0 ml/min Est GFR ( Amer) 113.5 Est GFR (Non-Af Amer) 98.0 BUN/Creatinine Ratio 15.0 (10-20) Glucose 102 H (70-99) mg/dl Calcium 9.0 (8.5-10.1) mg/dl (1) Acute appendicitis Acute appendicitis type: with localized peritonitis Appendicitis abscess presence: unspecified whether abscess present Appendicitis gangrene presence: unspecified whether gangrene present Appendicitis perforation presence: unspecified whether perforation present Qualified Code(s): K35.30 - Acute appendicitis with localized peritonitis, without perforation or gangrene
[2019-08-21] MEDS: OXYCODONE/ACETAMINOPHEN 5mg/325mg TAB PO PRN ×2 (11:30→16:25)
[2019-08-21] MEDS: METOPROLOL SUCC 25MG EXT REL TAB PO SCH (20:17)
[2019-08-22] MEDS: PIPERACILLIN/TAZOBACTAM 3.375 GM in DEXTROSE 5% 100 ML IV SCH ×3 (04:02→20:43)
[2019-08-22] MEDS: LACTATED RINGER'S 1,000 ML IV SCH ×3 (04:03→13:43)
[2019-08-22 06:17] LABS: Basophils # (auto) 0.02 K/uL (0-0.2); Basophils % (auto) 0.3 %; Eosinophils # (auto) 0.08 K/uL (0-0.5); Eosinophils % (auto) 1.2 %; Hematocrit (blood only) 34.1 % (42-52); Hemoglobin 11.7 g/dL (14.0-18.0); Immature Granulocytes # (auto) 0.15 K/uL (0.00-0.02); Immature Granulocytes % (auto) 2.3 %; Lymphocytes # (auto) 0.88 K/uL (1.2-3.4); Lymphocytes % (auto) 13.5 %; Mean Corpuscular Hemoglobin 30.6 pg (25-34); Mean Corpuscular Hgb Conc 34.3 g/dL (32-36); Mean Corpuscular Volume 89.3 fL (80-100); Mean Platelet Volume 10.2 fL (7.4-10.4); Monocytes # (auto) 0.43 K/uL (0.11-0.59); Monocytes % (auto) 6.6 %; Neutrophils # (auto) 4.98 K/uL (1.4-6.5); Neutrophils % (auto) 76.1 %; Platelet Count 175 K/uL (130-400); RDW Coefficient of Variation 12.8 % (11.5-14.5); RDW Standard Deviation 41.6 fL (36.4-46.3); Red Blood Count 3.82 M/uL (4.7-6.1); White Blood Count 6.54 K/uL (4.8-10.8)
[2019-08-22] MEDS: ACETAMINOPHEN 325 MG TAB PO PRN ×3 (06:49→20:20)
--- NOTE | 2019-08-22 08:24 | Anesthesiology Progress Note ---
Date of Service August 22, 2019 Anesthesia Post Procedure Vital Signs Vital Signs: Temp Pulse Pulse Resp BP Pulse Ox 08/22/19 06:56 36.7 C 79 18 139/90 94 08/21/19 22:51 37.0 C 90 18 143/83 H 92 08/21/19 20:15 87 137/84 08/21/19 15:19 37.2 C 86 16 124/80 92 Pain Intensity Left Abdomen: Pain Intensity: 5 Bilateral Lower Abdomen: Pain Intensity: 3 Notes Mental Status: alert / awake / arousable and participated in evaluation Patient Amnestic to Procedure: Yes Nausea / Vomiting: see Notes below Pain: adequately controlled Airway Patency, RR, SpO2: stable & adequate BP & HR: stable & adequate Hydration State: stable & adequate Anesthetic Complications: no major complications apparent and Pt Satisfied with anesthetic care
[2019-08-22] MEDS: LISINOPRIL/HCTZ 20/12.5MG 1 TAB TAB PO SCH (08:53)
--- NOTE | 2019-08-22 11:12 | Surgery Progress Note ---
Date of Service August 22, 2019 Assessment & Plan (1) Acute appendicitis: POD # 3 s/p open appendectomy for perforated appendicitis with generalized peritonitis. -vitals stable, afebrile, no leukocytosis - pain moderate, controlled - passing flatus, small amount of liquid stool Plan: Continue pain management as needed continue full liquids for lunch, if bowel function increases low fiber for dinner/breakfast tomorrow Highly Encouraged ambulation to help increase GI motility. Patient seems somewhat hesitant. Continue IV zosyn pending cultures of intra-abdominal fluid. Order placed for culture aerobic/anaerobic as original intraoperative collection was ordered as cytology (incorrect) lab called and aware. Will need full 7-10 day course of antibiotics (OK to switch to oral on discharge) Incentive spirometry and scds Dr. Guan has seen patient, agrees with above. Subjective feeling slightly better today no nausea or vomiting appetite still low, only drank orange juice and Jello this am, hesitant to do much full liquids walking some more in the hallway pain controlled with Tylenol today so far no chest pain, sob, dizziness passing flatus, small amount of liquid stool with flatus urinating without difficulty Physical Exam Constitutional: WD/WN, vitals as above no acute distress Respiratory: normal respiratory effort; no respiratory distress Gastrointestinal (Abdomen): Inspection/Auscultation: abdomen normal to inspection and normal bowel sounds; abdomen not distended Percussion/Palpation: abdomen soft; abdomen nontender, no guarding and abdomen not rigid Skin: no rashes, warm and dry + incision (covered with dry dressing, incision with denae, c/d/i) Psychiatric: Orientation: alert and oriented x 3 Results & Data Vital Signs (Past 12 Hours) Vital Signs Temp Pulse Resp BP Pulse Ox 08/22/19 06:56 36.7 C 79 18 139/90 94 Laboratory Results 08/22/19 Range/Units 05:44 WBC 6.54 (4.8-10.8) K/uL RBC 3.82 L (4.7-6.1) M/uL Hgb 11.7 L (14.0-18.0) g/dL Hct 34.1 L (42-52) % MCV 89.3 (80-100) fL MCH 30.6 (25-34) pg MCHC 34.3 (32-36) g/dL RDW Std Deviation 41.6 (36.4-46.3) fL RDW Coeff of Jordi 12.8 (11.5-14.5) % Plt Count 175 (130-400) K/uL MPV 10.2 (7.4-10.4) fL Immature Gran % (Auto) 2.3 % Neut % (Auto) 76.1 % Lymph % (Auto) 13.5 % [place] % (Auto) 6.6 % Eos % (Auto) 1.2 % Baso % (Auto) 0.3 % Immature Gran # (Auto) 0.15 H (0.00-0.02) K/uL Neut # (Auto) 4.98 (1.4-6.5) K/uL Lymph # (Auto) 0.88 L (1.2-3.4) K/uL [place] # (Auto) 0.43 (0.11-0.59) K/uL Eos # (Auto) 0.08 (0-0.5) K/uL Baso # (Auto) 0.02 (0-0.2) K/uL (1) Acute appendicitis Acute appendicitis type: with localized peritonitis Appendicitis abscess presence: unspecified whether abscess present Appendicitis gangrene presence: unspecified whether gangrene present Appendicitis perforation presence: unspecified whether perforation present Qualified Code(s): K35.30 - Acute appendicitis with localized peritonitis, without perforation or gangrene
[2019-08-22] MEDS: METOPROLOL SUCC 25MG EXT REL TAB PO SCH (20:39)
[2019-08-23] MEDS: PIPERACILLIN/TAZOBACTAM 3.375 GM in DEXTROSE 5% 100 ML IV SCH ×3 (05:03→20:40)
[2019-08-23 05:45] LABS: Hematocrit (blood only) 36.1 % (42-52); Hemoglobin 12.6 g/dL (14.0-18.0); Mean Corpuscular Hemoglobin 30.3 pg (25-34); Mean Corpuscular Hgb Conc 34.9 g/dL (32-36); Mean Corpuscular Volume 86.8 fL (80-100); Mean Platelet Volume 10.2 fL (7.4-10.4); Platelet Count 205 K/uL (130-400); RDW Coefficient of Variation 12.8 % (11.5-14.5); RDW Standard Deviation 40.7 fL (36.4-46.3); Red Blood Count 4.16 M/uL (4.7-6.1); White Blood Count 7.96 K/uL (4.8-10.8)
[2019-08-23 06:18] LABS: Basophils # (auto) 0.06 K/uL (0-0.2); Basophils % (auto) 0.8 %; Eosinophils # (auto) 0.13 K/uL (0-0.5); Eosinophils % (auto) 1.6 %; Immature Granulocytes % (auto) 8.8 %; Lymphocytes # (auto) 1.42 K/uL (1.2-3.4); Lymphocytes % (auto) 17.8 %; Monocytes # (auto) 0.61 K/uL (0.11-0.59); Monocytes % (auto) 7.7 %; Neutrophils # (auto) 5.04 K/uL (1.4-6.5); Neutrophils % (auto) 63.3 %; Toxic Vacuolation Occasional
[2019-08-23] MEDS: LACTATED RINGER'S 1,000 ML IV SCH (08:58)
[2019-08-23] MEDS: LISINOPRIL/HCTZ 20/12.5MG 1 TAB TAB PO SCH (09:00)
[2019-08-23] MEDS: ACETAMINOPHEN 325 MG TAB PO PRN ×2 (09:02→20:39)
--- NOTE | 2019-08-23 11:42 | Surgery Progress Note ---
Date of Service August 23, 2019 Assessment & Plan (1) Acute appendicitis: POD # 4 s/p open appendectomy for perforated appendicitis with generalized peritonitis. -vitals stable, afebrile, no leukocytosis - pain mild to moderate, controlled with PO Tylenol - passing flatus and liquid stool Plan: Continue pain management as needed, advised patient if Tylenol not controlling pain there are narcotics available advance to low fiber diet for lunch, advised to go slow continue to encourage ambulation to help increase GI motility. Continue IV zosyn pending cultures of intra-abdominal fluid. Order placed for culture aerobic/anaerobic as original intraoperative collection was ordered as cytology (incorrect) lab called and aware. Pending Will need full 7-10 day course of antibiotics (OK to switch to oral on discharge) Incentive spirometry and scds Dr. Guan has seen patient, agrees with above. Subjective when asked if feeling better today he states "I guess so" passing more gas and had more liquid stool this am walking hallway pain controlled with Tylenol, feeling bloated or looks bloated when cleaning up tolerated full liquids, finished most of tray last night for dinner still hesitant to increase diet no chest pain, shortness of breath, dizziness, headaches Physical Exam Constitutional: WD/WN, vitals as above no acute distress Respiratory: normal respiratory effort; no respiratory distress Gastrointestinal (Abdomen): Inspection/Auscultation: + abdomen distended (moderate today but soft) and normal bowel sounds Percussion/Palpation: + abdomen tender (midline incision) and abdomen soft; no guarding and abdomen not rigid Skin: no rashes, warm and dry + incision (midline incision with mild erythema, will monitor, staple intact) Psychiatric: Orientation: alert and oriented x 3 Affect: + flat affect Results & Data Vital Signs (Past 12 Hours) Vital Signs Temp Pulse Resp BP Pulse Ox 08/23/19 11:13 156/92 H 08/23/19 08:59 160/95 H 08/23/19 07:50 36.9 C 73 16 139/84 97 Laboratory Results 08/23/19 Range/Units 05:19 WBC 7.96 (4.8-10.8) K/uL RBC 4.16 L (4.7-6.1) M/uL Hgb 12.6 L (14.0-18.0) g/dL Hct 36.1 L (42-52) % MCV 86.8 (80-100) fL MCH 30.3 (25-34) pg MCHC 34.9 (32-36) g/dL RDW Std Deviation 40.7 (36.4-46.3) fL RDW Coeff of Jordi 12.8 (11.5-14.5) % Plt Count 205 (130-400) K/uL MPV 10.2 (7.4-10.4) fL Immature Gran % (Auto) 8.8 % Neut % (Auto) 63.3 % Lymph % (Auto) 17.8 % [place] % (Auto) 7.7 % Eos % (Auto) 1.6 % Baso % (Auto) 0.8 % Immature Gran # (Auto) 0.70 H (0.00-0.02) K/uL Neut # (Auto) 5.04 (1.4-6.5) K/uL Lymph # (Auto) 1.42 (1.2-3.4) K/uL [place] # (Auto) 0.61 H (0.11-0.59) K/uL Eos # (Auto) 0.13 (0-0.5) K/uL Baso # (Auto) 0.06 (0-0.2) K/uL Toxic Vacuolation Occasional (1) Acute appendicitis Acute appendicitis type: with localized peritonitis Appendicitis abscess presence: unspecified whether abscess present Appendicitis gangrene presence: unspecified whether gangrene present Appendicitis perforation presence: unspecified whether perforation present Qualified Code(s): K35.30 - Acute appendicitis with localized peritonitis, without perforation or gangrene
[2019-08-23] MEDS: OXYCODONE/ACETAMINOPHEN 5mg/325mg TAB PO PRN (13:43)
[2019-08-23] MEDS: METOPROLOL SUCC 25MG EXT REL TAB PO SCH (20:38)
[2019-08-24] MEDS: PIPERACILLIN/TAZOBACTAM 3.375 GM in DEXTROSE 5% 100 ML IV SCH (05:32)
[2019-08-24 06:36] LABS: Creatinine Clr Calc Pharmacy 124.5 ml/min; Est GFR (African American) 122.8; Est GFR (Non-African American) 105.9
[2019-08-24] MEDS: LISINOPRIL/HCTZ 20/12.5MG 1 TAB TAB PO SCH (08:43)
[2019-08-24] MEDS: ACETAMINOPHEN 325 MG TAB PO PRN (08:48)
--- NOTE | 2019-08-24 11:29 | Surgery Progress Note ---
Date of Service August 24, 2019 Assessment & Plan (1) Acute appendicitis: POD # 5 s/p open appendectomy for perforated appendicitis with generalized peritonitis. - vitals stable, afebrile, no leukocytosis - pain mild to moderate, controlled with PO Tylenol and Percocet - passing flatus and liquid stool Plan: Discharge home today Discharge instructions reviewed Rx for Percocet prn pain, PO Cipro/flagyl for 6 more days Follow-up in surgical office in 9-10 days for staple removal (2) Sepsis: Secondary to perforated appendicitis leukocytosis resolved afebrile, vitals stable blood cultures 2/[address] Guan has seen patient, agrees with above. Subjective feeling better today, still anxious about overdoing anything tolerated low fiber diet still passing gas and had more formed stools this morning still feeling bloated no nausea or vomiting ambulating hallway ready to go home Physical Exam Constitutional: WD/WN, vitals as above no acute distress Respiratory: normal respiratory effort; no respiratory distress Gastrointestinal (Abdomen): Inspection/Auscultation: + abdomen distended (moderate today) and normal bowel sounds (hypoactive) Percussion/Palpation: + abdomen tender (at incision site) and abdomen soft; no guarding and abdomen not rigid Skin: no rashes, warm and dry + incision (clean/dry/intact mild erythema at denae) Psychiatric: Orientation: alert and oriented x 3 Results & Data Vital Signs (Past 12 Hours) Vital Signs Temp Pulse Resp BP Pulse Ox 08/24/19 06:42 36.4 C L 76 18 155/90 H 95 (1) Acute appendicitis Acute appendicitis type: with localized peritonitis Appendicitis abscess presence: unspecified whether abscess present Appendicitis gangrene presence: unspecified whether gangrene present Appendicitis perforation presence: u nspecified whether perforation present Qualified Code(s): K35.30 - Acute appendicitis with localized peritonitis, without perforation or gangrene (2) Sepsis Sepsis acute organ dysfunction status: unspecified Sepsis type: sepsis due to unspecified organism Qualified Code(s): A41.9 - Sepsis, unspecified organism
--- NOTE | 2019-08-26 15:42 | Discharge Summary ---
Date of Service August 26, 2019 Admission HPI Per Admitting Provider 59 yr old man who presented to ER with complaints of severe abdominal pain that started one day ago. Was able to sleep last night but this morning, the abdomen was worse and more localized in lower quadrants. No radiation. 10/10 in intensity, not relieved by pain medications. Associated with fever. No nausea or vomiting. No prior similar symptoms. No recent travel history. Last month, was being treated for left hip/ leg pain by pcp. Principal Diagnosis Perforated Acute appendicitis Sepsis Discharge Data Allergies Allergy/AdvReac Type Severity Reaction Status Date / Time No Known Allergies Allergy Verified 08/19/19 17:11 Procedures Performed Operation Date: 08/19/19 19:15 Actual Procedures p Laparoscopic Appendectomy(Not Applicable) - Melissa Hassan MD s Open Appendectomy(Not Applicable) - Grayson Hassan p Laparoscopic Appendectomy Converted to(Not Applicable) - Grayson Hassan Ordered Studies 08/19/19 16:55 CT abd pelvis wo con Stat Hospital Course (1) Acute appendicitis: Patient was taken to operating room from emergency department for l aparoscopic appendectomy possible open by Dr. Hassan. Patient found to have purulent peritonitis upon laparoscopic view and procedure was converted to open laparotomy. Patient found ot have perforated appendicitis. Open appendectomy was performed. Patient tolerated procedure without any difficulties was was transferred to recovery then to medical/surgical floor for postoperative care. IV Zosyn was continued. Clear liquid diet. Activity as tolerated. IV Morphine and PO Percocet and Tylenol prn pain. POD # 1 vitals stable, afebrile, mild nausea, no return of bowel function. Diet advanced slowly to full liquids. POD # 2, vitals stable, afebrile, no return of bowel function yet. Full liquids continued. Encouraged to ambulate. POD # 3, vitals stable, afebrile, +flatus, ambulating. Diet kept of full liquids. POD # 4 vitals stable, afebrile, tolerated full liquids, positive bowel movement. Diet advanced to low fiber diet. POD # 5 vitals stable, afebrile, tolerated low fiber diet, pain controlled. Patient was discharged home on POD # 5 in stable condition. (2) Sepsis: Secondary to perforated appendicitis leukocytosis resolved afebrile, vitals stable blood cultures 2/2 negative Total Time Total Time Spent Total Time Spent (In Minutes): 30 Total Time Includes: Examination of the Patient, Discharge Planning and Medication Reconciliation Discharge Plan Discharge Items Patient Disposition: Home - Self-Care Reason For Visit: ACUTE PERFORATED APPENDICITIS Discharge Diagnosis: Perforated appendicitis Activity: Per Instructions section Non-emergency contact: Primary Care Provider and Surgeon Call non-emergency contact if: you have any medication questions, your pain is not controlled, your pain is worsening, your pain is concerning for you, you have a fever, your temperature is above 101, your wound has increased redness, your wound has increased drainage and your wound pain has increased Follow-up/Referrals: Natali Delcid CRNP [Primary Care Provider] - Diet: Low Fiber Addtl Attending Provider Instructions: Post-Surgical ~Discharge Instructions Activity Recommendations: - lifting limitation: (10 pounds for 6 weeks), - exercise/sex/sports limit: (nonstrenuous for 6 weeks), - Recommend daily walking to help increase motility of your GI system as well as preventing blood clots from forming in your legs. - driving or machine use limit: (none for 1 week or until you are pain free or no longer taking narcotic pain medication), - Shower/bathe limit: (may shower beginning today) Diet: - Low fiber diet for 2 weeks and then resume regular diet SPECIAL CARE INSTRUCTIONS: - May shower today. Let water run over area and pat dry. - [place] will be remove in surgical office. - If you want to place a small dressing on the incision to cover denae that is fine. Change daily. - Call the surgeon's office with any questions or concerns - - (ex. temperature higher than 101 degrees F, excessive bleeding or pain). MEDICATIONS: - Resume previous medications unless instructed otherwise by your surgeon. - Ibuprofen 600 mg every 6 hours as needed with food - Tylenol 650 mg every 6 hours as needed - Percocet 1 every 4 hours, as needed for moderate to severe pain - Recommend taking OTC stool softener (Colace) while taking narcotic pain medication. FOLLOW UP VISIT: - Please call the office to schedule a follow-up appointment with Dr. Hassan or Anne-Marie Baum PA-C in 9-10 days. You will need denae removed in office. Office number is - If you need to fax [facility] paperwork to our office, our fax number is [phone] - You will be off work at least until your follow-up appointment and then can determine return to work with restrictions. Pending Studies at Discharge: No Stand-Alone Forms: My [facility], Opioid Pain Management, Work/School Release (Inpt), Smoking Cessation Medications and DC Order Prescriptions: New oxycodone-acetaminophen 5-325 mg tablet 1 tab PO Q4H PRN (Reason: pain) Qty: 18 RF: 0 ciprofloxacin HCl 500 mg tablet 500 mg PO BID 6 Days Qty: 12 RF: 0 metronidazole 500 mg tablet 500 mg PO Q8H 6 Days Qty: 18 RF: 0 Continued gabapentin 100 mg capsule 100 mg PO .COMPLEX Qty: 90 RF: 5 lisinopril-hydrochlorothiazide 20-12.5 mg tablet 1 tab PO DAILY Qty: 30 RF: 5 tadalafil 10 mg tablet 10 mg PO UD PRN (Reason: sexual activity) Qty: 6 RF: 5 metoprolol succinate 25 mg tablet extended release 24 hr 12.5 mg PO HS RF: 0 Discharge Orders: Discharge Order (Routine); Ordered 08/24/19 Ordered By: Anne-Marie Corral/Other Patient Handouts: Appendx Surg, Discharge Instructions for Open Appendectomy Appendix Removal Admission Data Admit Date/Time: 08/19/19 21:42 Attending Provider: Melissa Hassan Admit Provider: Melissa Hassan Primary Care Provider: Natali Delcid Other Interventions: Discharge Summary Assessment (RN) Last Done: 08/24/19 12:46 DC Date/Time DO NOT enter until pt leaves facility: 08/24/19 13:51
== END 2019-08-24 13:51 | disposition home or self-care (01) | DRG 854 ==
LOC: ED 16:42 → OR 18:42 → 3E 21:42
DX: K35.20 Acute appendicitis with generalized peritonitis, without abscess; A41.9 Sepsis, unspecified organism; Z53.31 Laparoscopic surgical procedure converted to open procedure

== ENCOUNTER 2021-11-26 10:27 | Inpatient (IN) ==
[2021-11-26] MEDS ORDERED: SODIUM CHLORIDE 0.9% 500 ML IV STA (10:46)
[2021-11-26 11:41] LABS: Basophils # (auto) 0.02 K/uL (0-0.2); Basophils % (auto) 0.5 %; Eosinophils # (auto) 0.01 K/uL (0-0.5); Eosinophils % (auto) 0.2 %; Hematocrit (blood only) 44.6 % (42-52); Hemoglobin 16.2 g/dL (14.0-18.0); Immature Granulocytes # (auto) 0.01 K/uL (0.00-0.02); Immature Granulocytes % (auto) 0.2 %; Lymphocytes # (auto) 0.26 K/uL (1.2-3.4); Mean Corpuscular Hemoglobin 30.6 pg (25-34); Mean Corpuscular Hgb Conc 36.3 g/dL (32-36); Mean Corpuscular Volume 84.3 fL (80-100); Monocytes # (auto) 0.27 K/uL (0.11-0.59); Monocytes % (auto) 6.2 %; Neutrophils # (auto) 3.76 K/uL (1.4-6.5); Neutrophils % (auto) 86.9 %; Platelet Count 123 K/uL (130-400); RDW Coefficient of Variation 12.2 % (11.5-14.5); RDW Standard Deviation 37.5 fL (36.4-46.3); Red Blood Count 5.29 M/uL (4.7-6.1); White Blood Count 4.33 K/uL (4.8-10.8)
[2021-11-26 12:00] LABS: Albumin Globulin Ratio 1.4 (0.9-2); Albumin Level 4.6 gm/dl (3.4-5.0); BUN Creatinine Ratio 15.7 (10-20); Bilirubin,Total 1.6 mg/dl (0.2-1.0); Calcium 9.8 mg/dl (8.5-10.1); Creatinine Clr Calc Pharmacy 88.5 ml/min; Est GFR (African American) 110.8 ml/min; Est GFR (Non-African American) 95.6 ml/min; Globulin 3.3 gm/dl (2.5-4.0); Potassium 3.8 mmol/L (3.5-5.1); Total Protein 7.9 gm/dl (6.0-8.3)
[2021-11-26] MEDS ORDERED: SODIUM CHLORIDE 0.9% 1000ML 2,000 ML IV ONE (12:14)
[2021-11-26] MEDS ORDERED: ONDANSETRON INJ 2 MG/ML 2 ML VIAL IV STA (12:14)
[2021-11-26] MEDS ORDERED: cefTRIAXone SODIUM 2,000 MG/70 ML BAG IV STA (12:14)
--- NOTE | 2021-11-26 12:18 | Emergency Department Note ---
Impression & Plan Abdominal pain, Leukopenia, Nausea, Transaminitis, Elevated bilirubin ED Provider Note NAME: RAÚL MADDEN AGE: 61 SEX: M : 1960 ARRIVES VIA: Walk-In INFORMANT: Patient ED PROVIDER(S): Carlos Shah DO CHIEF COMPLAINT: abdominal pain HPI: Patient is a 61-year-old male who presents the ER for abdominal discomfort. This started Thursday. He describes it as a 6 out of 10. He notes its only uncontrolled nausea. Admits to dry heaving yesterday but that has abated. Has been having a small amount of diarrhea. He ate clams Thursday night and wonders if he has food poisoning. Does have a history of an appendectomy and notes that this feels similar but more around his umbilicus. No history of any cholecystectomy. Denies any dysuria, urgency, or frequency. He also notes at some point last week he noticed a scab along his right upper chest and felt like a bite. He did not notice any ticks. Thursday he noticed a rash with redness. Denies any fevers. Has not changed in size. ROS: See above HPI for pertinent positives & negatives. A total of 10 systems reviewed and were otherwise negative. PAST MEDICAL HISTORY:See Below PAST SURGICAL HISTORY:See Below FAMILY HISTORY:See Below SOCIAL HISTORY:See Below HOME MEDICATIONS:See Below ALLERGIES:See Below VITALS:See Below PHYSICAL EXAMINATION: GENERAL: Sitting up in bed, alert, well appearing, well nourished, no distress, non-toxic EYE EXAM: normal conjunctiva. OROPHARYNX: no exudate, no erythema, lips, buccal mucosa, and tongue normal and mucous membranes are moist NECK: supple, no nuchal rigidity, no adenopathy, non-tender LUNGS: Clear to auscultation. Normal chest wall mechanics HEART: no murmurs, S1 normal and S2 normal ABDOMEN: abdomen soft, non-tender, normo-active bowel sounds, no masses, no rebound or guarding. UPPER EXTREMITIES: upper extremities are grossly normal. LOWER EXTREMITIES: No pitting edema. NEURO EXAM: Normal sensorium, cranial nerves II-XII grossly intact, normal speech, no gross weakness of arms, no gross weakness of legs. MEDICAL DECISION MAKING: Patient is a 61-year-old male who presents ER for above-stated complaint. IV was established blood work was obtained. Labs show mild leukopenia 4.3 thousand. No significant anemia. BMP with mild hyponatremia 131. Mild transaminitis of about 200-300 and T bili of 1.6. Lipase was normal. UA was clean. Lyme as well as anaplasmosis was negative. On the right chest wall and there is overlying erythema. With hyponatremia and the transaminitis and mild leukopenia concern for anaplasmosis and consequently he was given doxycycline. CT abdomen pelvis was unremarkable and also concern for choledocholithiasis. Discussed with the hospitalist for further evaluation as will need likely MRCP as well as additional work-up. Triage Nursing notes reviewed. Limited review of prior medical records performed Vital Signs: reviewed and remarkable for HTN and tachy Differential diagnosis: Differential diagnoses includes but is not limited to gastritis, peptic ulcer disease, GERD, gallbladder disease, pancreatitis, small bowel obstruction, acute coronary syndrome, pericarditis, ischemic bowel, irritable bowel disease, irritable bowel syndrome, appendicitis, diverticulitis, malignancy, hernia, urinary tract infection, torsion, perforation, trauma, infectious. ER treatment provided: See below Diagnostics interpreted by me: ECG: none Cardiac Monitoring: An order was placed for continuous cardiac monitoring. The monitor shows a rate of 90 with sinus rhythm. Laboratory studies: As stated above and show below. Imaging studies: CT abdomen pelvis was unremarkable Consultation(s): Discussed with Zay Tate for further evaluation Procedures: none Critical Care: None Past Med/Surg History Medical History Anxiety Benign essential hypertension Erectile dysfunction Mixed hyperlipidemia Radicular low back pain Sciatic leg pain Tubular adenoma of colon Surgical History History of appendectomy 07/2019 Family History (Updated 11/26/21 @ 17:32 by Phil Tate) Father Dementia Denies family history of Ovarian cancer Prostate cancer Myocardial infarction Breast cancer Colorectal cancer Social History (Updated 11/26/21 @ 17:33 by Phil Tate) Smoking Status: Never smoker Second Hand Exposure: No; Hx Alcohol Use: Yes Alcohol type: beer Alcohol Intake Frequency: 4 or More x per/Week Alcohol Intake Frequency Comment: 4 beers/day Hx Substance Use: No Preferred Language: Greenlandic Communication Ability: Effective Backpackers Manager Required: No Beliefs That Will Affect Care: None marital status: Single Current Living Situation: Alone current occupational status: employed current occupation: [employer] work How many Children do You have: 0 Feels Safe at Home: Yes during the past year weight has: remained stable Seatbelt Use: always Assistive Devices: None Allergies Allergies Allergy/AdvReac Type Severity Reaction Status Date / Time No Known Allergies Allergy Verified 11/26/21 15:23 Home Meds Home Medications Medication Instructions Recorded Confirmed ranitidine HCl 150 mg tablet 0 mg PO DAILY PRN 11/26/21 11/26/21 Previous Rx's Medication Instructions Recorded tadalafil 10 mg tablet 10 mg PO UD PRN #6 tab 02/01/19 lisinopril 20 1 tab PO DAILY #30 tab 05/13/21 mg-hydrochlorothiazide 12.5 mg tablet metoprolol succinate 25 mg 12.5 mg PO HS #45 tab 05/13/21 tablet,extended release 24 hr Results & Data (ED) Vital Signs Vital Signs - 24 hr 11/26/21 10:41 11/26/21 12:12 11/26/21 12:30 Temperature 37.2 C Temperature Source Temporal Artery Scan Pulse Rate 98 H 89 88 Pulse Rate [Right Finger] Pulse Rate from SpO2 Sensor 89 89 Respiratory Rate 18 25 H 21 Respiratory Effort / Characteristics Respiratory Depth Normal Blood Pressure 146/87 H 132/86 Blood Pressure [Right Arm] Blood Pressure Mean 106 101 Blood Pressure Mean [Right Arm] Pulse Oximetry 99 98 98 Oxygen Delivery Method Room Air Sepsis Recent Fever Within 48 Hours Yes Sepsis New/Unexplained Change in Mental Status No Sepsis Action Taken by Nursing No Action Required 11/26/21 13:00 11/26/21 13:30 11/26/21 13:34 Temperature Temperature Source Pulse Rate 89 Pulse Rate [Right Finger] Pulse Rate from SpO2 Sensor 91 H 90 Respiratory Rate 16 Respiratory Effort / Characteristics Non-Labored Respiratory Depth Normal Blood Pressure 137/82 140/80 Blood Pressure [Right Arm] Blood Pressure Mean 100 100 Blood Pressure Mean [Right Arm] Pulse Oximetry 93 93 Oxygen Delivery Method Sepsis Recent Fever Within 48 Hours Sepsis New/Unexplained Change in Mental Status Sepsis Action Taken by Nursing 11/26/21 14:00 11/26/21 14:58 11/26/21 15:00 Temperature 37.8 C H Temperature Source Oral Pulse Rate 90 85 93 H Pulse Rate [Right Finger] 81 Pulse Rate from SpO2 Sensor 89 Respiratory Rate 18 16 23 Respiratory Effort / Characteristics Respiratory Depth Blood Pressure 143/88 H 139/88 135/89 Blood Pressure [Right Arm] 137/86 Blood Pressure Mean 106 105 104 Blood Pressure Mean [Right Arm] 103 Pulse Oximetry 95 95 Oxygen Delivery Method Room Air Sepsis Recent Fever Within 48 Hours Sepsis New/Unexplained Change in Mental Status Sepsis Action Taken by Nursing Laboratory Data Result diagrams: 11/26/21 11:24 11/26/21 11:24 Lab Results 11/26/21 11/26/21 11/26/21 Range/Units 10:46 11:24 11:24 WBC 4.33 L (4.8-10.8) K/uL RBC 5.29 (4.7-6.1) M/uL Hgb 16.2 (14.0-18.0) g/dL Hct 44.6 (42-52) % MCV 84.3 (80-100) fL MCH 30.6 (25-34) pg MCHC 36.3 H (32-36) g/dL RDW Std Deviation 37.5 (36.4-46.3) fL RDW Coeff of Jordi 12.2 (11.5-14.5) % Plt Count 123 L (130-400) K/uL MPV 11.0 H (7.4-10.4) fL Immature Gran % (Auto) 0.2 % Neut % (Auto) 86.9 % Lymph % (Auto) 6.0 % Martin % (Auto) 6.2 % Eos % (Auto) 0.2 % Baso % (Auto) 0.5 % Neut # (Auto) 3.76 (1.4-6.5) K/uL Lymph # (Auto) 0.26 L (1.2-3.4) K/uL Martin # (Auto) 0.27 (0.11-0.59) K/uL Eos # (Auto) 0.01 (0-0.5) K/uL Baso # (Auto) 0.02 (0-0.2) K/uL Immature Gran # (Auto) 0.01 (0.00-0.02) K/uL Sodium 131 L (136-145) mmol/L Potassium 3.8 (3.5-5.1) mmol/L Chloride 94 L (98-107) mmol/L Carbon Dioxide 25 (21-32) mmol/L Anion Gap 12 H (3-11) BUN 13 (6-23) mg/dl Creatinine 0.83 (0.6-1.4) mg/dl Est Cr Clr Drug Dosing 88.5 ml/min Est GFR ( Amer) 110.8 ml/min Est GFR (Non-Af Amer) 95.6 ml/min BUN/Creatinine Ratio 15.7 (10-20) Glucose 121 H (70-99(Fasting)) mg/dl Calcium 9.8 (8.5-10.1) mg/dl Total Bilirubin 1.6 H (0.2-1.0) mg/dl AST 168 H (13-39) U/L ALT 295 H (7-52) U/L Alkaline Phosphatase 127 H (34-104) U/L Total Protein 7.9 (6.0-8.3) gm/dl Albumin 4.6 (3.4-5.0) gm/dl Globulin 3.3 (2.5-4.0) gm/dl Albumin/Globulin Ratio 1.4 (0.9-2) Lipase 21 (11-82) U/L Urine Color Urine Appearance (Clear) Urine pH (4.5-7.5) Ur Specific [place] (1.000-1.030) Urine Protein (Negative) Urine Glucose (UA) (Negative) Urine Ketones (Negative) Urine Blood (Negative) Urine Nitrite (Negative) Urine Bilirubin (Negative) Urine Urobilinogen (Negative) Ur Leukocyte Esterase (Negative) Urine WBC (Auto) (0-5) /hpf Urine RBC (Auto) (0-4) /hpf U Hyaline Cast (Auto) (0-5) /lpf U Epithel Cells (Auto) (0-5) /lpf Urine Bacteria (Auto) (Negative) Anaplasma Smear See Comment Lyme Disease IgG Ab (Negative) Lyme Disease IgM Ab (Negative) SARS-CoV-2, RNA, NAAT (NEGATIVE) 11/26/21 11/26/21 11/26/21 Range/Units 11:24 14:25 14:55 WBC (4.8-10.8) K/uL RBC (4.7-6.1) M/uL Hgb (14.0-18.0) g/dL Hct (42-52) % MCV (80-100) fL MCH (25-34) pg MCHC (32-36) g/dL RDW Std Deviation (36.4-46.3) fL RDW Coeff of Jordi (11.5-14.5) % Plt Count (130-400) K/uL MPV (7.4-10.4) fL Immature Gran % (Auto) % Neut % (Auto) % Lymph % (Auto) % Martin % (Auto) % Eos % (Auto) % Baso % (Auto) % Neut # (Auto) (1.4-6.5) K/uL Lymph # (Auto) (1.2-3.4) K/uL Martin # (Auto) (0.11-0.59) K/uL Eos # (Auto) (0-0.5) K/uL Baso # (Auto) (0-0.2) K/uL Immature Gran # (Auto) (0.00-0.02) K/uL Sodium (136-145) mmol/L Potassium (3.5-5.1) mmol/L Chloride (98-107) mmol/L Carbon Dioxide (21-32) mmol/L Anion Gap (3-11) BUN (6-23) mg/dl Creatinine (0.6-1.4) mg/dl Est Cr Clr Drug Dosing ml/min Est GFR ( Amer) ml/min Est GFR (Non-Af Amer) ml/min BUN/Creatinine Ratio (10-20) Glucose (70-99(Fasting)) mg/dl Calcium (8.5-10.1) mg/dl Total Bilirubin (0.2-1.0) mg/dl AST (13-39) U/L ALT (7-52) U/L Alkaline Phosphatase (34-104) U/L Total Protein (6.0-8.3) gm/dl Albumin (3.4-5.0) gm/dl Globulin (2.5-4.0) gm/dl Albumin/Globulin Ratio (0.9-2) Lipase (11-82) U/L Urine Color Dark Yellow Urine Appearance Clear (Clear) Urine pH 6.0 (4.5-7.5) Ur Specific [place] > 1.045 H (1.000-1.030) Urine Protein 1+ H (Negative) Urine Glucose (UA) Negative (Negative) Urine Ketones 2+ H (Negative) Urine Blood Negative (Negative) Urine Nitrite Negative (Negative) Urine Bilirubin Negative (Negative) Urine Urobilinogen Negative (Negative) Ur Leukocyte Esterase Negative (Negative) Urine WBC (Auto) 1-5 (0-5) /hpf Urine RBC (Auto) 0-4 (0-4) /hpf U Hyaline Cast (Auto) 0 (0-5) /lpf U Epithel Cells (Auto) 0-5 (0-5) /lpf Urine Bacteria (Auto) Negative (Negative) Anaplasma Smear Lyme Disease IgG Ab Negative (Negative) Lyme Disease IgM Ab Negative (Negative) SARS-CoV-2, RNA, NAAT NEGATIVE (NEGATIVE) Administered Medications Discontinued Medications Sodium Chloride (Nss) 500 mls @ 999 mls/hr IV .Q31M STA Stop: 11/26/21 11:16 Last Infusion: 11/26/21 13:05 Dose: 0 mls/hr Documented by: [id number] Admin: 11/26/21 12:09 Dose: 999 mls/hr Documented by: [id number] Ceftriaxone Sodium (Rocephin) 2,000 mg in 70 mls @ 140 mls/hr IV NOW STA Stop: 11/26/21 12:43 Last Infusion: 11/26/21 14:05 Dose: 0 mls/hr Documented by: [id number] Admin: 11/26/21 13:20 Dose: 140 mls/hr Documented by: [id number] Sodium Chloride (Nss 1000ml) 2,000 mls @ 999 mls/hr IV .Q2H1M ONE Stop: 11/26/21 14:14 Last Infusion: 11/26/21 15:05 Dose: 0 mls/hr Documented by: [id number] Admin: 11/26/21 13:21 Dose: 999 mls/hr Documented by: [id number] Doxycycline Hyclate 100 mg/ (Dextrose) 110 mls @ 50 mls/hr IV NOW STA Stop: 11/26/21 16:58 Last Admin: 11/26/21 15:27 Dose: 50 mls/hr Documented by: [id number] Ioversol (Optiray 320 100ml) 93 ml IV ONCE ONE Stop: 11/26/21 12:41 Last Admin: 11/26/21 12:44 Dose: 93 ml Documented by: [id number] Ondansetron HCl (Ondansetron Inj 2 Mg/Ml 2 Ml Vial) 4 mg IV NOW STA Stop: 11/26/21 12:15 Last Admin: 11/26/21 12:41 Dose: 4 mg Documented by: [id number] Imaging Data Radiologist's Impression: Abdomen/Pelvis CT 11/26/21 12:[address] WITH IV CONTRAST CT DOSE: 729.79 mGycm HISTORY: Acute generalized abdominal pain abd pain TECHNIQUE: Multiaxial CT images of the abdomen and pelvis were performed following the IV administration of 93 cc of Optiray, A dose lowering technique was utilized adhering to the principles of ALARA. COMPARISON STUDY: 08/19/2019 FINDINGS: Coronary artery calcifications. The lung bases are generally clear. There is no pneumatosis or pneumoperitoneum. The spleen is enlarged measuring up to 14 cm in length which has increased in size from the prior study. The spleen, pancreas, gallbladder and adrenal glands are unremarkable. Hepatic steatosis with hepatomegaly. No evidence of cirrhosis or suspicious hepatic mass. There are a few subcentimeter hypodense foci noted within the liver measuring up to 7 mm w hich are too small to characterize, possibly cysts. There is patency of the hepatic and portal veins. Subcentimeter hypodensities of the kidneys are too small to characterize. 2.0 cm cyst of the inferior pole left kidney. Symmetric enhancement of the kidneys without hydronephrosis. Prostamegaly. Urinary bladder wall thickening with partial distention. Atherosclerosis of the aorta without aneurysm. There is no lymphadenopathy. No bowel obstruction or bowel wall thickening. Appendectomy. No ascites or mesenteric inflammation. Diastases recti. No acute fracture. Degenerative changes of the spine, pelvis and hips. IMPRESSION: 1. No acute intra-abdominal or intrapelvic abnormality. 2. No bowel obstruction or bowel wall thickening. 3. Hepatosplenomegaly with hepatic steatosis. 4. Prostamegaly with urinary bladder wall thickening suggestive of chronic bl adder outlet obstruction. Correlate with urinalysis. ACT 112: Negative or not required by law. The above report was generated using voice recognition software. It may contain grammatical, syntax or spelling errors. Electronically signed by: Edward Bryan M.D. 11/26/2021 1:51 PM Discharge Plan Visit Data Chief Complaint: Abdominal Pain Stated Complaint: ABDOMINAL PAIN, NAUSEA, DEHYDRATED ED Provider: Carlos Shah Discharge Problem: Abdominal pain, Leukopenia, Nausea, Transaminitis, Elevated bilirubin Forms Stand Alone Forms: My [facility] Prescriptions Prescriptions: No Action lisinopril-hydrochlorothiazide 20-12.5 mg tablet 1 tab PO DAILY Qty: 30 RF: 11 metoprolol succinate 25 mg tablet extended release 24 hr 12.5 mg PO HS Qty: 45 RF: 3 tadalafil 10 mg tablet 10 mg PO UD PRN (Reason: sexual activity) Qty: 6 RF: 5 ranitidine HCl [Zantac] 150 mg Tablet 0 mg PO DAILY PRN (Reason: Heartburn) RF: 0 Referrals Referrals: Natali Delcid CRNP [Primary Care Provider] - Discharge Problem: Abdominal pain Qualifiers: Abdominal location: unspecified location Qualified Code(s): R10.9 - Unspecified abdominal pain Leukopenia Qualifiers: Leukopenia type: unspecified Qualified Code(s): D72.819 - Decreased white blood cell count, unspecified
[2021-11-26] MEDS ORDERED: OPTIRAY 320 100ml IV ONE (12:40)
[2021-11-26 13:04] LABS: Lyme Ab IgG w/WB Rflx Negative (Negative); Lyme Ab IgM w/WB Rflx Negative (Negative)
--- NOTE | 2021-11-26 13:53 | CT Scan Report ---
ABDOMEN AND PELVIS CT WITH IV CONTRAST CT DOSE: 729.79 mGycm HISTORY: Acute generalized abdominal pain abd pain TECHNIQUE: Multiaxial CT images of the abdomen and pelvis were performed following the IV administrat ion of 93 cc of Optiray, A dose lowering technique was utilized adhering to the principles of ALARA. COMPARISON STUDY: 08/19/2019 FINDINGS: Coronary artery calcifications. The lung bases are generally clear. There is no pneumatosis or pneumo peritoneum. The spleen is enlarged measuring up to 14 cm in length which has increased in size from t he prior study. The spleen, pancreas, gallbladder and adrenal glands are unremarkable. Hepatic steato sis with hepatomegaly. No evidence of cirrhosis or suspicious hepatic mass. There are a few subcentim eter hypodense foci noted within the liver measuring up to 7 mm which are too small to characterize, possibly cysts. There is patency of the hepatic and portal veins. Subcentimeter hypodensities of the kidneys are too small to characterize. 2.0 cm cyst of the inferior pole left kidney. Symmetric enhancement of the kidneys without hydronephrosis. Prostamegaly. Urinary bladder wall thickening with partial distention. Atherosclerosis of the aorta without aneurysm. Ther e is no lymphadenopathy. No bowel obstruction or bowel wall thickening. Appendectomy. No ascites or mesenteric inflammation. D iastases recti. No acute fracture. Degenerative changes of the spine, pelvis and hips. IMPRESSION: 1. No acute intra-abdominal or intrapelvic abnormality. 2. No bowel obstruction or bowel wall thickening. 3. Hepatosplenomegaly with hepatic steatosis. 4. Prostamegaly with urinary bladder wall thickening suggestive of chronic bladder outlet obstruction . Correlate with urinalysis. ACT 112: Negative or not required by law. The above report was generated using voice recognition software. It may contain grammatical, syntax o r spelling errors. Electronically signed by: Edward Bryan M.D. 11/26/2021 1:51 PM
[2021-11-26] MEDS ORDERED: DOXYCYCLINE HYCLATE 100 MG in DEXTROSE 5% 100 ML IV STA (14:47)
[2021-11-26 15:23] LABS: Appearance Urine Clear (Clear); Bacteria Urine Automated Negative (Negative); Bilirubin Urine Negative (Negative); Blood Urine Negative (Negative); Cast Urine Automated 0 /lpf (0-5); Color Urine Dark Yellow; Epithelial Cell Urine Auto 0-5 /lpf (0-5); Glucose Urine UA Negative (Negative); Ketones Urine 2+ (Negative); Leukocyte Esterase Urine Negative (Negative); Nitrite Urine Negative (Negative); Protein Urine 1+ (Negative); RBC Urine Automated 0-4 /hpf (0-4); Specific Gravity Urine > 1.045 (1.000-1.030); Urobilinogen Urine Negative (Negative)
--- NOTE | 2021-11-26 17:06 | History & Physical Report ---
Date of Service November 26, 2021 Assessment & Plan (1) Lyme disease: Plan: The patient has erythema migrans rash on his chest c/w early stage Lyme disease. He received both IV rocephin & doxycycline in the ER. Will continue doxycycline BID monotherapy moving forward and Rx for 14-28 days. He may have co-infection with Anaplasmosis as his labs - leukopenia, thrombocytopenia, low sodium, and abnormal LFTs - are typical for Anaplasmosis. Send Anaplasmosis DNA as his anaplasmosis smear is negative. Either way both Lyme & Anaplasmosis will be covered with doxycycline. Of note -- blood cultures were not sent in the ER, and he already received IV antibiotics prior to my assessment. Cultures likely to be of little yield - thus, defer for now. (2) Leukopenia: Plan: Typical for tick-borne infection (e.g. Anaplasmosis), viral process, etc. Repeat CBC in am. Anaplasmosis DNA sent. Doxycycline. Consider viral testing (EBV, CMV, parvo, etc) if the WBC count worsens rather than improves over the next several days. Of note - COVID testing is negative. (3) Thrombocytopenia: Plan: Tick-borne (e.g. Anaplasmosis) vs viral vs other. Serial CBCs. See above. (4) Abnormal LFTs: Plan: Likely 2nd to tick-borne infection. Can't rule out daily etoh consumption contributing. Repeat LFTs in am. Obtain RUQ u/s to r/o biliary tract disease or primary liver disease causing this issue. Fatty liver seen on CT is likely from chronic etoh usage. (5) Hyponatremia: Plan: 2nd to volume contraction in the setting of infection. Isotonic fluids, repeat BMP am. (6) Rash: Plan: Right upper chest - c/w bullseye rash from early stage Lyme. See above. The rash is not c/w cellulitis. Serial exams. (7) Abdominal pain: Plan: 2nd to suspected tick-borne infection. No evidence of pancreatitis. RUQ u/s ordered to r/o acute cholecystitis. Can't exclude gastritis from etoh use; thus, start pepcid 20mg IV BID. If RUQ u/s is negative then start full liquids later tonight. Pain meds prn (will use toradol 15mg IV q6h prn). (8) Benign essential hypertension: Plan: Hold lisinopril-HCTZ. Cont metoprolol xl. (9) Alcohol use: Plan: 3-4 beers/day. no prior h/o DTs or withdrawal. Watch carefully for such but low risk. Thiamine, MVI, folate supplementation. Plan: DVT proph - defer on chemical means for now -- low risk place on observation status History of Present Illness Chief Complaint: fevers, chills, nausea, abd pain Primary Care Provider: WAYLON Peters 61yo male with history of HTN and daily alcohol use presents with fevers, chills, sweats, poor appetite, fatigue, rash on his R upper chest, abd pain, nausea, dry heaves, and a minor amount of diarrhea starting Thursday. Patient states he ate clams on Thursday pm and thus he thought that he had food poisoning when the symptoms started on Thursday. He denies any recent travel or sick contacts. Further, he noted an insect bite to his right upper chest sometime mid last week but it "rashed" over the weekend. The rash is not pruritic, and not painful. Allergies Allergy/AdvReac Type Severity Reaction Status Date / Time No Known Allergies Allergy Verified 11/26/21 15:23 Home Medications Medication Instructions Recorded Confirmed Type tadalafil 10 mg tablet 10 mg PO UD PRN #6 tab 02/01/19 11/26/21 Rx lisinopril 20 1 tab PO DAILY #30 tab 05/13/21 11/26/21 Rx mg-hydrochlorothiazide 12.5 mg tablet metoprolol succinate 25 mg 12.5 mg PO HS #45 tab 05/13/21 11/26/21 Rx tablet,extended release 24 hr ranitidine HCl 150 mg tablet 0 mg PO DAILY PRN 11/26/21 11/26/21 History Past Med/Surg History Medical History Anxiety Benign essential hypertension Erectile dysfunction Mixed hyperlipidemia Radicular low back pain Sciatic leg pain Tubular adenoma of colon Surgical History History of appendectomy 07/2019 Family History Father Dementia Denies family history of Ovarian cancer Prostate cancer Myocardial infarction Breast cancer Colorectal cancer Social History Smoking Status: Never smoker Second Hand Exposure: No; Do You Dip or Chew Tobacco: No; Tobacco Cessation Education Requested by Patient: No Hx Alcohol Use: Yes Alcohol type: beer Alcohol Intake Frequency: 4 or More x per/Week Alcohol Intake Frequency Comment: 4 beers/day Hx Substance Use: No Preferred Language: Urdu Communication Ability: Effective Trauma Coordinator Required: No Beliefs That Will Affect Care: None marital status: Single Current Living Situation: Alone current occupational status: employed current occupation: [employer] work How many Children do You have: 0 Feels Safe at Home: Yes Safety Concerns: Feels Safe At This Time during the past year weight has: remained stable Seatbelt Use: always Assistive Devices: None Review of Systems Review of Systems: gen - fevers, chills, anorexia, fatigue eyes - no visual changes HENT - no ear pain, sore throat, or nasal congestion neck - mild headache pain back of neck cv - no chest pain pulm - no dyspnea, no cough GI - mild abdominal discomfort/upset (generalized); intractable nausea; dry heaves (weekend); diarrhea (weekend); no blood per rectum - no hematuria, no dysuria musculo - no arthralgias; no myalgias skin - rash on upper right chest neuro - mild headache, but no focal motor weakness; no paresthesias psych - no depression Physical Exam Physical Exam: gen - looks sick but nontoxic, NAD eyes - PERRL HENT - TMs clear b/l; nose clear; mouth - dry MM neck - shotty lymphadenopathy b/l CV - tachy, s1 s2, no murmur lungs - CTA b/l abd - spleen tip palpable; liver edge palpable; BS+, ND, soft, NT ext - no edema, pulses 2+ b/l neuro - strength 5/5 x 4 exts; DTRs 2+ b/l; no facial weakness; speech clear skin - "bullseye" rash right upper chest starting in the same plane as the nipple and extending laterally towards the right axillary region; the central portion of rash is more intensely red than the periphery; the shape is ellipse; presumed tick bite present in central portion of rash; no other areas of rash present psych - a/o x 3 Results & Data Results & Data ([facility]) Vital Signs (Past 12 Hours) Vital Signs Temp Pulse Pulse Resp BP BP Pulse Ox 11/26/21 15:00 37.8 C H 93 H 81 23 135/89 137/86 95 11/26/21 14:58 85 16 139/88 11/26/21 14:00 90 18 143/88 H 95 11/26/21 13:30 89 16 140/80 93 11/26/21 13:00 137/82 93 11/26/21 12:30 88 21 132/86 98 11/26/21 12:12 89 25 H 98 11/26/21 10:41 37.2 C 98 H 18 146/87 H 99 Laboratory Results Laboratory Results - last 24 hr 11/26/21 11/26/21 11/26/21 10:46 11:24 11:24 WBC 4.33 L RBC 5.29 Hgb 16.2 Hct 44.6 MCV 84.3 MCH 30.6 MCHC 36.3 H RDW Std Deviation 37.5 RDW Coeff of Jordi 12.2 Plt Count 123 L MPV 11.0 H Immature Gran % (Auto) 0.2 Neut % (Auto) 86.9 Lymph % (Auto) 6.0 [place] % (Auto) 6.2 Eos % (Auto) 0.2 Baso % (Auto) 0.5 Neut # (Auto) 3.76 Lymph # (Auto) 0.26 L [place] # (Auto) 0.27 Eos # (Auto) 0.01 Baso # (Auto) 0.02 Immature Gran # (Auto) 0.01 Sodium 131 L Potassium 3.8 Chloride 94 L Carbon Dioxide 25 Anion Gap 12 H BUN 13 Creatinine 0.83 Est Cr Clr Drug Dosing 88.5 Est GFR ( Amer) 110.8 Est GFR (Non-Af Amer) 95.6 BUN/Creatinine Ratio 15.7 Glucose 121 H Calcium 9.8 Magnesium Total Bilirubin 1.6 H AST 168 H ALT 295 H Alkaline Phosphatase 127 H Total Protein 7.9 Albumin 4.6 Globulin 3.3 Albumin/Globulin Ratio 1.4 Lipase 21 Urine Color Urine Appearance Urine pH Ur Specific [place] Urine Protein Urine Glucose (UA) Urine Ketones Urine Blood Urine Nitrite Urine Bilirubin Urine Urobilinogen Ur Leukocyte Esterase Urine WBC (Auto) Urine RBC (Auto) U Hyaline Cast (Auto) U Epithel Cells (Auto) Urine Bacteria (Auto) Anaplasma Smear See Comment A. phagocytophilum DNA Lyme Disease IgG Ab Lyme Disease IgM Ab SARS-CoV-2, RNA, NAAT 11/26/21 11/26/21 11/26/21 11:24 11:24 11:24 WBC RBC Hgb Hct MCV MCH MCHC RDW Std Deviation RDW Coeff of Jordi Plt Count MPV Immature Gran % (Auto) Neut % (Auto) Lymph % (Auto) [place] % (Auto) Eos % (Auto) Baso % (Auto) Neut # (Auto) Lymph # (Auto) [place] # (Auto) Eos # (Auto) Baso # (Auto) Immature Gran # (Auto) Sodium Potassium Chloride Carbon Dioxide Anion Gap BUN Creatinine Est Cr Clr Drug Dosing Est GFR ( Amer) Est GFR (Non-Af Amer) BUN/Creatinine Ratio Glucose Calcium Magnesium 1.9 Total Bilirubin AST ALT Alkaline Phosphatase Total Protein Albumin Globulin Albumin/Globulin Ratio Lipase Urine Color Urine Appearance Urine pH Ur Specific [place] Urine Protein Urine Glucose (UA) Urine Ketones Urine Blood Urine Nitrite Urine Bilirubin Urine Urobilinogen Ur Leukocyte Esterase Urine WBC (Auto) Urine RBC (Auto) U Hyaline Cast (Auto) U Epithel Cells (Auto) Urine Bacteria (Auto) Anaplasma Smear A. phagocytophilum DNA Pending Lyme Disease IgG Ab Negative Lyme Disease IgM Ab Negative SARS-CoV-2, RNA, NAAT 11/26/21 11/26/21 14:25 14:55 WBC RBC Hgb Hct MCV MCH MCHC RDW Std Deviation RDW Coeff of Jordi Plt Count MPV Immature Gran % (Auto) Neut % (Auto) Lymph % (Auto) [place] % (Auto) Eos % (Auto) Baso % (Auto) Neut # (Auto) Lymph # (Auto) [place] # (Auto) Eos # (Auto) Baso # (Auto) Immature Gran # (Auto) Sodium Potassium Chloride Carbon Dioxide Anion Gap BUN Creatinine Est Cr Clr Drug Dosing Est GFR ( Amer) Est GFR (Non-Af Amer) BUN/Creatinine Ratio Glucose Calcium Magnesium Total Bilirubin AST ALT Alkaline Phosphatase Total Protein Albumin Globulin Albumin/Globulin Ratio Lipase Urine Color Dark Yellow Urine Appearance Clear Urine pH 6.0 Ur Specific [place] > 1.045 H Urine Protein 1+ H Urine Glucose (UA) Negative Urine Ketones 2+ H Urine Blood Negative Urine Nitrite Negative Urine Bilirubin Negative Urine Urobilinogen Negative Ur Leukocyte Esterase Negative Urine WBC (Auto) 1-5 Urine RBC (Auto) 0-4 U Hyaline Cast (Auto) 0 U Epithel Cells (Auto) 0-5 Urine Bacteria (Auto) Negative Anaplasma Smear A. phagocytophilum DNA Lyme Disease IgG Ab Lyme Disease IgM Ab SARS-CoV-2, RNA, NAAT NEGATIVE Diagnostic Findings Abdomen/Pelvis CT 11/26/21 12:[address] WITH IV CONTRAST CT DOSE: 729.79 mGycm HISTORY: Acute generalized abdominal pain abd pain TECHNIQUE: Multiaxial CT images of the abdomen and pelvis were performed following the IV administration of 93 cc of Optiray, A dose lowering technique was utilized adhering to the principles of ALARA. COMPARISON STUDY: 08/19/2019 FINDINGS: Coronary artery calcifications. The lung bases are generally clear. There is no pneumatosis or pneumoperitoneum. The spleen is enlarged measuring up to 14 cm in length which has increased in size from the prior study. The spleen, pancreas, gallbladder and adrenal glands are unremarkable. Hepatic steatosis with hepatomegaly. No evidence of cirrhosis or suspicious hepatic mass. There are a few subcentimeter hypodense foci noted within the liver measuring up to 7 mm which are too small to characterize, possibly cysts. There is patency of the hepatic and portal veins. Subcentimeter hypodensities of the kidneys are too small to characterize. 2.0 cm cyst of the inferior pole left kidney. Symmetric enhancement of the kidneys without hydronephrosis. Prostamegaly. Urinary bladder wall thickening with partial distention. Atherosclerosis of the aorta without aneurysm. There is no lymphadenopathy. No bowel obstruction or bowel wall thickening. Appendectomy. No ascites or mesenteric inflammation. Diastases recti. No acute fracture. Degenerative changes of the spine, pelvis and hips. IMPRESSION: 1. No acute intra-abdominal or intrapelvic abnormality. 2. No bowel obstruction or bowel wall thickening. 3. Hepatosplenomegaly with hepatic steatosis. 4. Prostamegaly with urinary bladder wall thickening suggestive of chronic bladder outlet obstruction. Correlate with urinalysis. ACT 112: Negative or not required by law. The above report was generated using voice recognition software. It may contain grammatical, syntax or spelling errors. Electronically signed by: Edward Bryan M.D. 11/26/2021 1:51 PM PG Care Time/CCT Total # of Minutes Spent Total Time Spent with Patient: Total time spent is greater than 50% in coordination of care (as documented) at patient's floor/unit and/or counseling patient: Coding Level of Care Code INT OBSERVATION CARE 70M LVL 3 Diagnoses Lyme disease A69.20 Leukopenia D72.819 Thrombocytopenia D69.6 Abnormal LFTs R79.89 Hyponatremia E87.1 Rash R21 Abdominal pain R10.9 Benign essential hypertension I10 Alcohol use Z72.89
[2021-11-26] MEDS ORDERED: KETOROLAC 30 MG/ML VIAL IV ONE (19:06)
[2021-11-26] MEDS ORDERED: KETOROLAC 30 MG/ML VIAL ONE (19:13)
[2021-11-26] MEDS ORDERED: ONDANSETRON INJ 2 MG/ML 2 ML VIAL IV PRN (20:23)
[2021-11-26] MEDS ORDERED: KETOROLAC TROMETHAMINE 15 MG/ML VIAL IV PRN (20:23)
[2021-11-26] MEDS: NSS + 20MEQ KCL 20 MEQ/1,000 ML BAG IV SCH (21:14)
[2021-11-26] MEDS: FAMOTIDINE 20 MG in SYRINGE 3 ML IV SCH (21:14)
[2021-11-26] MEDS: THIAMINE HCL 100 MG TAB PO SCH (21:14)
[2021-11-26] MEDS: FOLIC ACID 1 MG TAB PO SCH (21:15)
[2021-11-26] MEDS: METOPROLOL SUCC 25MG EXT REL TAB PO SCH (21:15)
[2021-11-27] MEDS: DOXYCYCLINE HYCLATE 100 MG in DEXTROSE 5% 100 ML IV SCH ×2 (03:37→16:47)
--- NOTE | 2021-11-27 07:00 | Ultrasound Report ---
ULTRASOUND RIGHT UPPER QUADRANT ABDOMEN CLINICAL HISTORY: Right upper quadrant abdominal pain. Elevated hepatic transaminases. COMPARISON STUDY: Abdominal CT dated 11/26/2021. TECHNIQUE: Real-time, grayscale, and color flow sonography of the right upper quadrant of the abdomen was performed. Images are reviewed in the transverse and longitudinal planes. FINDINGS: Liver: The liver is mildly enlarged and demonstrates heterogeneously increased echotexture indicating steatosis. Fatty sparing is seen adjacent to gallbladder fossa . There is no intrahepatic biliary du ctal dilatation. The main portal vein is patent. Gallbladder: A shadowing gallstone is seen in the region of the gallbladder neck. Biliary sludge is i dentified. There is no gallbladder wall thickening or pericholecystic fluid. A sonographic Guido's s ign is reportedly absent. The common bile duct measures up to 0.4 cm in diameter. Pancreas: Visualized portions of the pancreatic head and body are normal in appearance. The splenic v ein is patent. Right kidney: Survey images of the right kidney demonstrate normal size and echotexture. There is no hydronephrosis. Ascites: None. IMPRESSION: 1. Cholelithiasis without sonographic evidence of acute cholecystitis. 2. Hepatomegaly and hepatic steatosis. ACT 112: Negative or not required by law. Electronically signed by: Barak Gomez M.D. 11/27/2021 6:59 AM
[2021-11-27 07:13] LABS: Basophils # (auto) 0.02 K/uL (0-0.2); Basophils % (auto) 0.6 %; Eosinophils # (auto) 0.04 K/uL (0-0.5); Eosinophils % (auto) 1.2 %; Hematocrit (blood only) 39.5 % (42-52); Hemoglobin 13.8 g/dL (14.0-18.0); Immature Granulocytes # (auto) 0.02 K/uL (0.00-0.02); Immature Granulocytes % (auto) 0.6 %; Lymphocytes # (auto) 0.67 K/uL (1.2-3.4); Lymphocytes % (auto) 19.9 %; Mean Corpuscular Hemoglobin 29.6 pg (25-34); Mean Corpuscular Hgb Conc 34.9 g/dL (32-36); Mean Corpuscular Volume 84.8 fL (80-100); Mean Platelet Volume 10.1 fL (7.4-10.4); Monocytes # (auto) 0.41 K/uL (0.11-0.59); Monocytes % (auto) 12.2 %; Neutrophils # (auto) 2.21 K/uL (1.4-6.5); Neutrophils % (auto) 65.5 %; Platelet Count 130 K/uL (130-400); RDW Coefficient of Variation 12.7 % (11.5-14.5); RDW Standard Deviation 38.9 fL (36.4-46.3); Red Blood Count 4.66 M/uL (4.7-6.1); White Blood Count 3.37 K/uL (4.8-10.8)
[2021-11-27 07:34] LABS: Albumin Globulin Ratio 1.4 (0.9-2); Albumin Level 3.7 gm/dl (3.4-5.0); BUN Creatinine Ratio 17.2 (10-20); Calcium 8.3 mg/dl (8.5-10.1); Creatinine Clr Calc Pharmacy 125.9 ml/min; Est GFR (African American) 123.3 ml/min; Est GFR (Non-African American) 106.4 ml/min; Globulin 2.7 gm/dl (2.5-4.0); Potassium 3.6 mmol/L (3.5-5.1); Total Protein 6.4 gm/dl (6.0-8.3)
[2021-11-27] MEDS: FAMOTIDINE 20 MG in SYRINGE 3 ML IV SCH ×2 (08:50→20:05)
[2021-11-27] MEDS: FOLIC ACID 1 MG TAB PO SCH ×2 (08:50→19:57)
[2021-11-27] MEDS: THIAMINE HCL 100 MG TAB PO SCH ×2 (08:50→19:57)
[2021-11-27] MEDS: CEROVITE ADV FORMULA TAB PO SCH (08:50)
[2021-11-27] MEDS: NSS + 20MEQ KCL 20 MEQ/1,000 ML BAG IV SCH (08:53)
--- NOTE | 2021-11-27 15:15 | Hospitalist Progress Note ---
Date of Service November 27, 2021 Assessment & Plan (1) Lyme disease: Plan: Treat for erythema migrans, other tickborne diseases testing results pending; I think blood cultures worthwhile in case of another etiology not sensitive to Doxy (2) Leukopenia: Plan: Follow at present, consistent with tickborne (3) Thrombocytopenia: Plan: Improvedfollow-up (4) Abnormal LFTs: Plan: Likely secondary to acute tickborne illness but hepatosplenomegaly, hepatic steatosis will need follow-up (5) Hyponatremia: Plan: Mild and improvedfollow (6) Rash: Plan: Right upper chest - c/w bullseye rash from early stage Lyme. See above. The rash is not c/w cellulitis. Serial exams. (7) Benign essential hypertension: Plan: Hold lisinopril-HCTZ. Cont metoprolol xl. (8) Alcohol use: Plan: 3-4 beers/day. no prior h/o DTs or withdrawal. Watch carefully for such but low risk. Thiamine, MVI, folate supplementation. Admission and Anticipated Discharge Date Admission Date: November 26, 2021 Subjective Follow-up of presentation with chest lesion, malaise, headacheoverall no new issues, better Physical Exam Physical Exam: Constitutional and general: No acute distress, looks biologic age Head and face: No puffiness, atraumatic Eyes: No scleral icterus, extraocular movements normal Neck: Supple, no JVD Musculoskeletal: No acute joint swelling, no bony abnormalities Skin/dermatologic/integument: Chest wall right side lesion consistent with erythema migrans Hematologic and lymphatic: pallor +, no petechia Gastrointestinal/abdomen: Nondistended, soft, nonacute Neurologic: Cranial nerves intact, nonfocal Psychiatry: Awake, alert, pleasant, communicative Cardiovascular: Heart rhythm regular, no rub, SSM, no gallop Respiratory: Chest movements equal, no use of accessory muscles, no adventitious sounds Extremities: No edema, no cyanosis Results & Data Results & Data ([facility]) Vital Signs (Past 12 Hours) Vital Signs Temp Pulse Resp BP Pulse Ox 11/27/21 08:23 36.8 C 70 16 134/80 97 Laboratory Results Laboratory Results - last 24 hr 11/26/21 11/26/21 11/26/21 10:46 11:24 11:24 WBC RBC Hgb Hct MCV MCH MCHC RDW Std Deviation RDW Coeff of Jordi Plt Count MPV Immature Gran % (Auto) Neut % (Auto) Lymph % (Auto) [place] % (Auto) Eos % (Auto) Baso % (Auto) Neut # (Auto) Lymph # (Auto) [place] # (Auto) Eos # (Auto) Baso # (Auto) Immature Gran # (Auto) Sodium Potassium Chloride Carbon Dioxide Anion Gap BUN Creatinine Est Cr Clr Drug Dosing Est GFR ( Amer) Est GFR (Non-Af Amer) BUN/Creatinine Ratio Glucose Calcium Magnesium 1.9 Total Bilirubin AST ALT Alkaline Phosphatase Total Protein Albumin Globulin Albumin/Globulin Ratio Urine Color Urine Appearance Urine pH Ur Specific [place] Urine Protein Urine Glucose (UA) Urine Ketones Urine Blood Urine Nitrite Urine Bilirubin Urine Urobilinogen Ur Leukocyte Esterase Urine WBC (Auto) Urine RBC (Auto) U Hyaline Cast (Auto) U Epithel Cells (Auto) Urine Bacteria (Auto) Anaplasma Smear See Comment A. phagocytophilum DNA Pending E.chaffeensis DNA (PCR) SARS-CoV-2, RNA, NAAT 11/26/21 11/26/21 11/27/21 14:25 14:55 06:45 WBC 3.37 L RBC 4.66 L Hgb 13.8 L Hct 39.5 L MCV 84.8 MCH 29.6 MCHC 34.9 RDW Std Deviation 38.9 RDW Coeff of Jordi 12.7 Plt Count 130 MPV 10.1 Immature Gran % (Auto) 0.6 Neut % (Auto) 65.5 Lymph % (Auto) 19.9 [place] % (Auto) 12.2 Eos % (Auto) 1.2 Baso % (Auto) 0.6 Neut # (Auto) 2.21 Lymph # (Auto) 0.67 L [place] # (Auto) 0.41 Eos # (Auto) 0.04 Baso # (Auto) 0.02 Immature Gran # (Auto) 0.02 Sodium Potassium Chloride Carbon Dioxide Anion Gap BUN Creatinine Est Cr Clr Drug Dosing Est GFR ( Amer) Est GFR (Non-Af Amer) BUN/Creatinine Ratio Glucose Calcium Magnesium Total Bilirubin AST ALT Alkaline Phosphatase Total Protein Albumin Globulin Albumin/Globulin Ratio Urine Color Dark Yellow Urine Appearance Clear Urine pH 6.0 Ur Specific [place] > 1.045 H Urine Protein 1+ H Urine Glucose (UA) Negative Urine Ketones 2+ H Urine Blood Negative Urine Nitrite Negative Urine Bilirubin Negative Urine Urobilinogen Negative Ur Leukocyte Esterase Negative Urine WBC (Auto) 1-5 Urine RBC (Auto) 0-4 U Hyaline Cast (Auto) 0 U Epithel Cells (Auto) 0-5 Urine Bacteria (Auto) Negative Anaplasma Smear A. phagocytophilum DNA E.chaffeensis DNA (PCR) SARS-CoV-2, RNA, NAAT NEGATIVE 11/27/21 11/27/21 06:45 09:39 WBC RBC Hgb Hct MCV MCH MCHC RDW Std Deviation RDW Coeff of Jordi Plt Count MPV Immature Gran % (Auto) Neut % (Auto) Lymph % (Auto) [place] % (Auto) Eos % (Auto) Baso % (Auto) Neut # (Auto) Lymph # (Auto) [place] # (Auto) Eos # (Auto) Baso # (Auto) Immature Gran # (Auto) Sodium 134 L Potassium 3.6 Chloride 103 Carbon Dioxide 25 Anion Gap 6 BUN 11 Creatinine 0.64 Est Cr Clr Drug Dosing 125.9 Est GFR ( Amer) 123.3 Est GFR (Non-Af Amer) 106.4 BUN/Creatinine Ratio 17.2 Glucose 107 H Calcium 8.3 L Magnesium Total Bilirubin 1.0 D AST 111 H ALT 259 H Alkaline Phosphatase 119 H Total Protein 6.4 Albumin 3.7 Globulin 2.7 Albumin/Globulin Ratio 1.4 Urine Color Urine Appearance Urine pH Ur Specific [place] Urine Protein Urine Glucose (UA) Urine Ketones Urine Blood Urine Nitrite Urine Bilirubin Urine Urobilinogen Ur Leukocyte Esterase Urine WBC (Auto) Urine RBC (Auto) U Hyaline Cast (Auto) U Epithel Cells (Auto) Urine Bacteria (Auto) Anaplasma Smear A. phagocytophilum DNA E.chaffeensis DNA (PCR) Pending SARS-CoV-2, RNA, NAAT PG Care Time/CCT Total # of Minutes Spent Total Time Spent with Patient: Total time spent is greater than 50% in coordination of care (as documented) at patient's floor/unit and/or counseling patient: Coding Level of Care Code 47794 Subseq Obs Care Lvl 2 Diagnoses Lyme disease A69.20 Leukopenia D72.819 Thrombocytopenia D69.6 Abnormal LFTs R79.89 Hyponatremia E87.1 Rash R21 Benign essential hypertension I10 Alcohol use Z72.89
[2021-11-27] MEDS: ENOXAPARIN INJ 40 MG/0.4 ML SYR SQ SCH (16:47)
[2021-11-27] MEDS: METOPROLOL SUCC 25MG EXT REL TAB PO SCH (19:57)
--- NOTE | 2021-11-27 22:23 | Electrocardiogram Report ---
Test Reason : Blood Pressure : / mmHG Vent. Rate : 073 BPM Atrial Rate : 073 BPM P-R Int : 136 ms QRS Dur : 092 ms QT Int : 450 ms P-R-T Axes : 077 043 009 degrees QTc Int : 495 ms Normal sinus rhythm Possible Left atrial enlargement Incomplete right bundle branch block Prolonged QT Abnormal ECG When compared with ECG of 19-AUG-2019 18:00, Vent. rate has decreased BY [address] no longer depressed in Anterior leads Confirmed by Christoph Delgadillo ([id number]) on 11/27/2021 10:22:39 PM Referred By: REFERRED SELF Confirmed By:Christoph Delgadillo
[2021-11-28] MEDS: DOXYCYCLINE HYCLATE 100 MG in DEXTROSE 5% 100 ML IV SCH (04:24)
[2021-11-28 07:24] LABS: Basophils # (auto) 0.03 K/uL (0-0.2); Basophils % (auto) 0.7 %; Eosinophils # (auto) 0.09 K/uL (0-0.50); Eosinophils % (auto) 2.1 %; Hematocrit (blood only) 44.4 % (40.1-51.0); Hemoglobin 15.5 g/dl (14.0-18.0); Immature Granulocytes # (auto) 0.02 K/uL (0.00-0.02); Immature Granulocytes % (auto) 0.5 %; Lymphocytes # (auto) 1.28 K/uL (1.2-3.4); Lymphocytes % (auto) 29.2 %; Mean Corpuscular Hgb Conc 34.9 g/dL (32.0-36.0); Mean Corpuscular Volume 85.9 fL (80.0-100.0); Mean Platelet Volume 10.5 fL (9.4-12.4); Monocytes % (auto) 11.4 %; Neutrophils # (auto) 2.47 K/uL (1.4-6.5); Neutrophils % (auto) 56.1 %; Platelet Count 167 K/uL (130-400); RDW Coefficient of Variation 12.2 % (11.5-14.5); RDW Standard Deviation 38.5 fL (36.4-46.3); Red Blood Count 5.17 M/uL (4.63-6.08); White Blood Count 4.39 K/ul (4.8-10.8)
[2021-11-28 07:44] LABS: Albumin Globulin Ratio 1.4 (0.9-2); Albumin Level 4.2 gm/dl (3.4-5.0); Bilirubin,Total 0.9 mg/dl (0.2-1.0); Calcium 9.2 mg/dl (8.5-10.1); Creatinine Clr Calc Pharmacy 122.1 ml/min; Est GFR (African American) 121.8 ml/min; Est GFR (Non-African American) 105.1 ml/min; Globulin 3.1 gm/dl (2.5-4.0); Phosphorus 2.9 mg/dl (2.5-4.9); Potassium 3.8 mmol/L (3.5-5.1); Total Protein 7.3 gm/dl (6.0-8.3)
[2021-11-28] MEDS: CEROVITE ADV FORMULA TAB PO SCH (08:14)
[2021-11-28] MEDS: THIAMINE HCL 100 MG TAB PO SCH ×2 (08:15→20:26)
[2021-11-28] MEDS: DOXYCYCLINE HYCLATE 100 MG CAP PO SCH ×2 (09:34→20:26)
--- NOTE | 2021-11-28 14:30 | Hospitalist Progress Note ---
Date of Service November 28, 2021 Assessment & Plan (1) Lyme disease: Plan: Treat for erythema migrans, other tickborne diseases testing results pending; observe 1 more day to ensure no other diagnosis; getting irritation with IVswitch to p.o. (2) Leukopenia: Plan: Follow at present, consistent with tickborne; better, follow (3) Abnormal LFTs: Plan: Likely secondary to acute tickborne illness but hepatosplenomegaly, hepatic steatosis will need follow-up (4) Rash: Plan: Right upper chest - c/w bullseye rash from early stage Lyme. See above. The rash is not c/w cellulitis. Serial exams. (5) Benign essential hypertension: Plan: Resume lisinopril, BP drifting up, thiazide still on hold Cont metoprolol xl. (6) Alcohol use: Plan: 3-4 beers/day. no prior h/o DTs or withdrawal. Watch carefully for such but low risk. Thiamine, MVI, folate supplementation. (7) Hepatosplenomegaly: Plan: Outpatient follow-up; counseled on alcohol cessation Admission and Anticipated Discharge Date Admission Date: November 28, 2021 Subjective Follow-up of presentation with chest lesion, malaise, headachehad chills overnight though no fever documented; still some nausea Results & Data Results & Data ([facility]) Vital Signs (Past 12 Hours) Vital Signs Temp Pulse Resp BP Pulse Ox 11/28/21 07:37 36.5 C 70 20 152/84 H 98 Laboratory Results Laboratory Results - last 24 hr 11/27/21 11/27/21 11/27/21 15:34 15:37 16:05 WBC RBC Hgb Hct MCV MCH MCHC RDW Std Deviation RDW Coeff of Jordi Plt Count MPV Immature Gran % (Auto) Neut % (Auto) Lymph % (Auto) [place] % (Auto) Eos % (Auto) Baso % (Auto) Neut # (Auto) Lymph # (Auto) [place] # (Auto) Eos # (Auto) Baso # (Auto) Immature Gran # (Auto) Sodium Potassium Chloride Carbon Dioxide Anion Gap BUN Creatinine Est Cr Clr Drug Dosing Est GFR ( Amer) Est GFR (Non-Af Amer) Fasting Glucose Calcium Phosphorus Magnesium Total Bilirubin AST ALT Alkaline Phosphatase Total Protein Albumin Globulin Albumin/Globulin Ratio Anaplasma Smear See Comment Babesia Smear See Comment Babesia microti DNA PCR Pending Q Fever Phase I IgG Ab Pending Q Fever Phase I IgM Ab Pending Q Fever Phase II IgG Ab Pending Q Fever Phase II IgM Ab Pending [place] IgG Ab Pending [place] IgM Ab Pending Typhus Fever IgG Ab Pending Typhus Fever IgM Ab Pending 11/28/21 11/28/21 07:00 07:00 WBC 4.39 L RBC 5.17 Hgb 15.5 Hct 44.4 MCV 85.9 MCH 30.0 MCHC 34.9 RDW Std Deviation 38.5 RDW Coeff of Jordi 12.2 Plt Count 167 MPV 10.5 Immature Gran % (Auto) 0.5 Neut % (Auto) 56.1 Lymph % (Auto) 29.2 [place] % (Auto) 11.4 Eos % (Auto) 2.1 Baso % (Auto) 0.7 Neut # (Auto) 2.47 Lymph # (Auto) 1.28 [place] # (Auto) 0.50 Eos # (Auto) 0.09 Baso # (Auto) 0.03 Immature Gran # (Auto) 0.02 Sodium 138 Potassium 3.8 Chloride 104 Carbon Dioxide 26 Anion Gap 8 BUN 11 Creatinine 0.66 Est Cr Clr Drug Dosing 122.1 Est GFR ( Amer) 121.8 Est GFR (Non-Af Amer) 105.1 Fasting Glucose 107 H Calcium 9.2 Phosphorus 2.9 Magnesium 2.0 Total Bilirubin 0.9 AST 81 H ALT 264 H Alkaline Phosphatase 138 H Total Protein 7.3 Albumin 4.2 Globulin 3.1 Albumin/Globulin Ratio 1.4 Anaplasma Smear Babesia Smear Babesia microti DNA PCR Q Fever Phase I IgG Ab Q Fever Phase I IgM Ab Q Fever Phase II IgG Ab Q Fever Phase II IgM Ab [place]ettsia IgG Ab [place] IgM Ab Typhus Fever IgG Ab Typhus Fever IgM Ab PG Care Time/CCT Total # of Minutes Spent Total Time Spent with Patient: Total time spent is greater than 50% in coordination of care (as documented) at patient's floor/unit and/or counseling patient: Coding Level of Care Code 98100 Subseq Hosp Care Lvl 2 Diagnoses Lyme disease A69.20 Leukopenia D72.819 Abnormal LFTs R79.89 Rash R21 Benign essential hypertension I10 Alcohol use Z72.89 Hepatosplenomegaly R16.2
[2021-11-28] MEDS: lisinopril 20 MG TAB PO SCH (16:47)
[2021-11-28] MEDS: ENOXAPARIN INJ 40 MG/0.4 ML SYR SQ SCH (16:47)
[2021-11-28] MEDS: METOPROLOL SUCC 25MG EXT REL TAB PO SCH (20:25)
[2021-11-29] MEDS: FAMOTIDINE 20 MG in SYRINGE 3 ML IV SCH (07:00)
[2021-11-29] MEDS: THIAMINE HCL 100 MG TAB PO SCH (07:30)
[2021-11-29] MEDS: DOXYCYCLINE HYCLATE 100 MG CAP PO SCH (07:30)
[2021-11-29] MEDS: FOLIC ACID 1 MG TAB PO SCH (07:30)
[2021-11-29] MEDS: lisinopril 20 MG TAB PO SCH (07:30)
[2021-11-29 09:09] LABS: Hematocrit (blood only) 42.7 % (40.1-51.0); Hemoglobin 14.9 g/dl (14.0-18.0); Mean Corpuscular Hemoglobin 29.5 pg (25.0-34.0); Mean Corpuscular Hgb Conc 34.9 g/dL (32.0-36.0); Mean Corpuscular Volume 84.6 fL (80.0-100.0); Mean Platelet Volume 10.7 fL (9.4-12.4); Platelet Count 181 K/uL (130-400); RDW Coefficient of Variation 12.3 % (11.5-14.5); RDW Standard Deviation 37.1 fL (36.4-46.3); Red Blood Count 5.05 M/uL (4.63-6.08); White Blood Count 4.01 K/ul (4.8-10.8)
[2021-11-29 09:34] LABS: Albumin Globulin Ratio 1.4 (0.9-2); Albumin Level 4.1 gm/dl (3.4-5.0); Bilirubin,Total 0.8 mg/dl (0.2-1.0); Calcium 9.4 mg/dl (8.5-10.1); Creatinine Clr Calc Pharmacy 110.4 ml/min; Est GFR (African American) 116.9 ml/min; Est GFR (Non-African American) 100.8 ml/min; Globulin 2.9 gm/dl (2.5-4.0); Phosphorus 3.7 mg/dl (2.5-4.9); Potassium 3.7 mmol/L (3.5-5.1)
[2021-11-29 10:51] LABS: Basophils # (auto) 0.02 K/uL (0-0.2); Basophils % (auto) 0.5 %; Eosinophils # (auto) 0.07 K/uL (0-0.50); Eosinophils % (auto) 1.7 %; Immature Granulocytes # (auto) 0.03 K/uL (0.00-0.02); Immature Granulocytes % (auto) 0.7 %; Lymphocytes # (auto) 1.21 K/uL (1.2-3.4); Lymphocytes % (auto) 30.2 %; Monocytes # (auto) 0.28 K/uL (0.24-0.82); Neutrophils % (auto) 59.9 %
--- NOTE | 2021-11-29 11:19 | Discharge Summary ---
Date of Service November 29, 2021 Principal Diagnosis Early Lyme disease with erythema migrans Discharge Exam Constitutional and general: No acute distress, looks biologic age Head and face: No puffiness, atraumatic Eyes: No scleral icterus, extraocular movements normal Neck: Supple, no JVD Musculoskeletal: No acute joint swelling, no bony abnormalities Skin/dermatologic/integument: chest wall rash better, no purpura Hematologic and lymphatic: pallor none; no petechia Gastrointestinal/abdomen: Nondistended, soft, nonacute Neurologic: Cranial nerves intact, nonfocal Psychiatry: Awake, alert, pleasant, communicative Cardiovascular: Heart rhythm regular, no rub, no murmur, no gallop Respiratory: Chest movements equal, no use of accessory muscles, no adventitious sounds Extremities: No edema, no cyanosis Vital Signs Temp Pulse Resp BP BP Pulse Ox 11/29/21 07:37 36 C L 62 20 123/82 95 11/28/21 21:56 36.5 C 66 18 128/80 98 11/28/21 14:39 36.6 C 81 18 151/86 H 95 Intake and Output 11/28/21 11/29/21 11/29/21 22:59 06:59 14:59 Intake Total 300 / 1195 110 / 110 Balance 300 / 1195 110 / 110 Intake: IV 110 / 110 Doxycycline Hyclate 100 mg In 110 / 110 Dextrose 5% 100 ml @ 50 mls/hr IV Q12H [facility] Rx#:[id number] Oral 300 / 1085 Other: # Unmeasured Voids 1 1 Discharge Data Allergies Allergy/AdvReac Type Severity Reaction Status Date / Time No Known Allergies Allergy Verified 11/26/21 15:23 Consultations 11/26/21 14:55 ED Decision to Admit Stat Ordered Studies 11/26/21 12:14 CT abd pelvis IV con only Stat 11/26/21 17:30 US gallbladder Urgent Hospital Course (1) Lyme disease: Some nonspecific chills but overall improved and wants to go home; doxycycline for 14 days, other tickborne diseases testing results pending- ehrlichiosis PCR, Rickettsia antibodies, typhus antibodies, Q fever antibodies (2) Leukopenia: More or less same-outpatient follow-up (3) Abnormal LFTs: Improvinglikely secondary to acute tickborne illness but hepatosplenomegaly, hepatic steatosis will need follow-up (4) Rash: Appears consistent with erythema migrans/improving. (5) Benign essential hypertension: Resumed lisinopril, thiazide still on hold at dischargeoutpatient follow- up Cont metoprolol xl. (6) Alcohol use: Recommended complete abstinence (7) Hepatosplenomegaly: Outpatient gastroenterology follow-up; counseled on alcohol cessation Total Time Total Time Spent Total Time Spent (In Minutes): 35 Discharge Plan Discharge Items Patient Disposition: Home - Self-Care Reason For Visit: ABDOMINAL PAIN, NAUSEA, DEHYDRATED Discharge Diagnosis: Early Lyme disease Activity: Resume your previous activity Non-emergency contact: Primary Care Provider Call non-emergency contact if: your symptoms worsen Follow-up/Referrals: Natali Delcid CRNP [Primary Care Provider] - Rakesh Recinos MD [Physician] - (Known to you, hepatosplenomegaly noted; follow-up in about 2 weeks) Diet: Heart Healthy Addtl Attending Provider Instructions: Complete abstinence from alcohol recommended Pending Studies at Discharge: Yes Studies:: Rickettsia antibodies, typhus fever antibodies, Q fever antibodies, ehrlichiosis DNA Stand-Alone Forms: [facility] [employer], Smoking Cessation Medications and DC Order Prescriptions: New doxycycline hyclate 100 mg Capsule 100 mg PO BID Qty: 22 RF: 0 lisinopril 20 mg Tablet 20 mg PO QAM Qty: 30 RF: 0 thiamine HCl (vitamin B1) 100 mg Tablet 100 mg PO DAILY Qty: 30 RF: 0 folic acid 1 mg Tablet 1 mg PO QAM Qty: 30 RF: 0 famotidine 20 mg tablet 20 mg PO HS Qty: 30 RF: 0 Continued metoprolol succinate 25 mg tablet extended release 24 hr 12.5 mg PO HS Qty: 45 RF: 3 tadalafil 10 mg tablet 10 mg PO UD PRN (Reason: sexual activity) Qty: 6 RF: 5 Discontinued lisinopril-hydrochlorothiazide 20-12.5 mg tablet 1 tab PO DAILY Qty: 30 RF: 11 ranitidine HCl [Zantac] 150 mg Tablet 0 mg PO DAILY PRN (Reason: Heartburn) RF: 0 Discharge Orders: Discharge Order (Routine); Ordered 11/29/21 Ordered By: Nicole Butler Admission Data Admit Date/Time: 11/28/21 12:17 Attending Provider: Nicole Butler Admit Provider: Phil Tate Primary Care Provider: Natali Delcid Other Providers: Phil Tate Coding Level of Care Code D/C DAY MANAGEMENT >30 MINS Diagnoses Lyme disease A69.20 Leukopenia D72.819 Abnormal LFTs R79.89 Rash R21 Benign essential hypertension I10 Alcohol use Z72.89 Hepatosplenomegaly R16.2
[2021-12-01 13:32] LABS: Babesia microti DNA Not Detected (Not Detected)
[2021-12-03 11:08] LABS: Ehrlichia chaff DNA Bld Negative (Negative)
== END 2021-11-29 12:39 | disposition home or self-care (01) | DRG 868 ==
LOC: 3W 10:27 → ED 10:27 → SUATTDRO 17:39 → 3W 19:58